=== PATIENT | male | born 1955 | race Caucasian/White ===

== ENCOUNTER 2020-07-12 10:06 | Inpatient (IN) ==
[2020-07-12] MEDS ORDERED: 0.9 % SODIUM CHLORIDE 1,000 ML IV ONE (10:38)
[2020-07-12] MEDS ORDERED: ASPIRIN 81 MG TAB.CHEW CHEWED ONE (10:44)
--- NOTE | 2020-07-12 10:44 | Emergency Department Note ---
SOB HPI General Chief Complaint: Shortness of Breath/Dyspnea Stated Complaint: SOB Time Seen by Provider: 07/12/20 10:44 Source: patient Mode of arrival: ambulatory Limitations: no limitations History of Present Illness HPI Narrative: Narrative: This pleasant 65-year-old gentleman comes the emergency room brought by his son who lives in the same facility/domicile. Apparently his saturations went down to 86% although patient does not specifically know remember this. He has become more short of breath. Here he was found to be 86%. He also has had a fever and a temperature. He initially was interviewed via virtual by his primary care provider, Dr. Shaq Clemente, on the for a dry cough that is started somewhere around the December. He has had decreased sleep some headache, nasal congestion, fatigue, no GI symptoms, no change in taste or smell frequent coughs were noted. He was prescribed promethazine, put in quarantine, recommended to have Covid testing done. This was done on the same day and was actually found to be positive. He was told to come the emergency room should he become more short of breath which has been happening over this past day or 2 I believe. He reports being very dry in his mouth. He is coughing up only a tiny bit of phlegm. He still has some sense of humor. Related Data Home Medications Medication Instructions Recorded Confirmed cholecalciferol (vitamin D3) 50 2,000 unit PO .COMPLEX cap 12/29/16 07/12/20 mcg (2,000 unit) capsule atorvastatin 40 mg tablet 40 mg PO QDAY 01/25/19 07/12/20 aspirin 81 mg tablet,delayed 81 mg PO BID tab 03/28/19 07/12/20 release cetirizine 5 mg-pseudoephedrine ER 1 tab PO ONCE PRN tab 10/12/19 07/12/20 120 mg tablet,extended release,12hr metoprolol succinate 25 mg PO HS 07/12/20 07/12/20 metoprolol succinate 50 mg PO DAILY 07/12/20 07/12/20 Previous Rx's Medication Instructions Recorded nitroglycerin 0.4 mg sublingual 0.4 mg SUBLINGUAL Q5-15M PRN #25 12/14/18 tablet tab famotidine 20 mg tablet 20 mg PO BID #180 tab 11/30/19 tamsulosin 0.4 mg capsule 0.4 mg PO QDAY #90 cap 02/14/20 promethazine 6.25 mg-codeine 10 5 ml PO Q6H PRN #120 ml 07/03/20 mg/5 mL syrup zolpidem 10 mg tablet 10 mg PO HS PRN #30 tab 07/03/20 Allergies Allergy/AdvReac Type Severity Reaction Status Date / Time cat dander Allergy Cough Verified 07/03/20 16:53 Review of Systems ROS ROS Narrative: Narrative: 10 system Review of Systems negative except as mentioned above. [facility] Narrative Patient History Narrative: Narrative: Medical/Surgical/Family History All Active Problems (Updated 07/12/20 @ 15:05 by Donta Pandey DO) Hypoxia (Acute) Pneumonia due to COVID-19 virus (Acute) Tachypnea (Acute) Fever (Acute) DNR (do not resuscitate) (Acute) DNI (do not intubate) (Acute) Acute kidney insufficiency (Acute) Morbid obesity (Acute) BPH (benign prostatic hyperplasia) (Chronic) Hyperglycemia (Chronic) S/P CABG x 3 (Chronic) CAD (coronary artery disease) (Acute) Fatigue (Chronic) Morbid obesity (Chronic) Weight gain (Chronic) Skin lesion of face (Chronic) Chronic kidney disease, stage III (moderate) (Chronic) Right knee pain (Chronic) Heartburn (Chronic) Grief (Chronic) Secondary hyperparathyroidism of renal origin (Chronic) Hypertensive renal disease (Chronic) Stress (Chronic) Sciatica (Chronic) Right ankle pain (Chronic) Reactive airway disease (Chronic) Prostate disorder (Chronic) Peroneal tendonitis (Chronic) Pain in joint involving ankle and foot (Chronic) Osteoarthritis (Chronic) Onychomycosis (Chronic) Low back pain (Chronic) Insomnia (Chronic) Hypocalcemia (Chronic) Hypertension, essential (Chronic) Herpes zoster (Chronic) Hearing loss (Chronic) Gastroesophageal reflux (Chronic) Elevated serum creatinine (Chronic) Diverticulosis of colon (Chronic) Depression (Chronic) Degeneration of lumbar intervertebral disc (Chronic) Back pain (Chronic) Medical History (Updated 07/12/20 @ 15:05 by Donta Pandey DO) Back pain (Chronic) Myofascial back pain Basal cell carcinoma (Resolved) Bronchitis (Resolved) 03/27/2014 Chest discomfort (Inactive) Chronic kidney disease, stage III (moderate) (Chronic) Follows with nephrology. Avoid NSAIDs. Cough (Resolved) Degeneration of lumbar intervertebral disc (Chronic) Depression (Chronic) Diverticulosis of colon (Chronic) Elevated serum creatinine (Chronic) Gastroesophageal reflux (Chronic) Grief (Chronic) Hearing loss (Chronic) Heartburn (Chronic) Occasional. Not controlled. Herpes zoster (Chronic) Hypertension, essential (Chronic) Well-controlled on metoprolol succinate Low-sodium diet recommended Hypertensive renal disease (Chronic) Hypocalcemia (Chronic) Insomnia (Chronic) Stable on zolpidem 10 mg daily. He has been on it for several years without an increased dose. Did not do well when he tried [id number] sleep aid instead. Low back pain (Chronic) Mild at present Medicare annual wellness visit, subsequent (Inactive) Morbid obesity (Chronic) Counseled on diet, exercise, and weight loss. Patient exercising in the pool, during therapy for his knee. No longer seeing the dietitian. Onychomycosis (Chronic) Osteoarthritis (Chronic) Steroid injection to right knee today for symptomatic severe degenerative changes. Pain in joint involving ankle and foot (Chronic) left Peroneal tendonitis (Chronic) left ankle Prostate disorder (Chronic) enlarged prostate Reactive airway disease (Chronic) Right ankle pain (Chronic) Sciatica (Chronic) Secondary hyperparathyroidism of renal origin (Chronic) Skin lesion of face (Chronic) Tiny roughened area right eyebrow Stress (Chronic) Enormous family stressors Trochanteric bursitis (Resolved) Surgical History (Updated 07/12/20 @ 10:46 by Donta Pandey DO) Hx of adenoidectomy (Resolved) Hx of CABG (Acute ~01/2019) 01/16/2019 Three vessel bypass grafting Hx of cataract surgery (Resolved) bilateral Hx of colonoscopy (Resolved) 01/02/14 Diverticulosis. 5 year follow up. Hx of foot surgery (Resolved) 06/28 capsule and tendon repair left ankle Hx of tonsillectomy (Resolved) Social History Smoking Status: Never smoker Alcohol Intake Frequency: a few times a month Exam Narrative Narrative: Narrative: General Limitations: no limitations General appearance: Present alert, in no apparent distress, nontoxic and other (Is demonstrating shortness of breath with 3-7 word dyspnea but variable. Is a bit tachypneic but does not look toxic. Normal color.) Head Head: Present atraumatic and normocephalic Eye Eye: Present normal appearance, PERRL and EOMI ENT ENT: Present mucous membranes dry (Very dry) Neck Neck: Present trachea midline; Absent lymphadenopathy and thyromegaly Chest Chest: Present symmetric chest wall rise Respiratory Respiratory: Present decreased breath sounds and other (tachypnea of 30-36 breaths per minute, sometimes 4-7 word dyspnea.); Absent respiratory distress, rales/crackles, wheezes, stridor, accessory muscle use and prolonged expiratory phase Cardiovascular Cardiovascular: Present regular rate and tachycardia; Absent systolic murmur and diastolic murmur Adbominal Abdominal: Present soft and other (very large); Absent distention, tenderness, guarding, rebound, rigidity, organomegaly and mass Extremities Extremities: Present normal capillary refill; Absent pedal edema, pretibial edema, calf tenderness and cyanosis Back Back: Neurological Neurological: Present alert and oriented X3 Psychiatric Psychiatric: Present normal affect, polite, pleasant and other (occasional 1/2 smile and joke.); Absent depressed, agitated, anxious and poor eye contact Skin Skin: Present warm (WNL) and dry; Absent cyanosis and pallor Course Vital Signs Vital signs: Vital Signs Temperature 102.1 F H 07/12/20 10:07 Pulse Rate 107 H 07/12/20 10:07 Respiratory Rate 22 07/12/20 10:07 Blood Pressure 125/87 07/12/20 10:07 Pulse Oximetry (%) 86 L 07/12/20 10:07 Temperature 102.1 F H 07/12/20 10:07 Pulse Rate 99 H 07/12/20 14:17 Respiratory Rate 38 H 07/12/20 14:17 Blood Pressure 111/71 07/12/20 14:17 Pulse Oximetry (%) 91 07/12/20 14:17 [facility] Narrative Medical decision making narrative: Narrative: 10:35 AM - interviewed and examined. Worsening shortness of breath and Covid positive patient with now fever and tachycardia and tachypnea. Will do full work-up metabolically, with his history of coronary artery disease will also be doing a troponin, BNP, EKG; will get blood cultures; etc. NOTE: I spoke with patient regarding likelihood of or possibility of needing to be transferred for specialty care. He under no circumstances wants to be transferred even if it were at risk for cost of life. He does not want full CPR but asked to do what ever I would do would be a time-limited consideration. He does not want to be intubated though even if it were for Covid pathology. With patient's creatinine 2.0, his D-dimer was not able to be investigated further the angiogram. I discussed with the hospitalist, Dr. Jimenez, who is willing to accept this patient for admission/inpatient treatment. Several labs are still pending due to a necessary redraw due to sample having clotted. Dr. Jimenez and I discussed remdesivir, 200 mg ordered. Also dexamethasone, 6 mg ordered. Lab Data Result diagrams: 07/12/20 11:00 07/12/20 12:41 Labs: Lab Results 07/12/20 07/12/20 07/12/20 Range/Units 11:00 11:00 11:20 WBC 7.2 (4.5-11.0) K/mcL RBC 4.76 (4.50-5.90) M/mcL Hgb 14.1 (13.5-16.5) g/dL Hct 41.0 (41.0-55.0) % MCV 86.1 (80.0-100.0) fL MCH 29.6 (26.0-34.0) pg MCHC 34.4 (31.0-36.0) g/dL RDW 12.1 (11.5-14.5) % Plt Count 191 (140-440) K/mcL MPV 11.4 H (7.4-10.4) fL Neut % (Auto) 78.0 (38.0-78.0) % Lymph % (Auto) 11.3 L (15.0-49.0) % [place] % (Auto) 10.6 (1.0-12.0) % Eos % (Auto) 0 (0.0-7.0) % Baso % (Auto) 0.1 (0.0-2.0) % Lymph # (Auto) 0.81 L (1.50-4.80) K/mcL [place] # (Auto) 0.76 (0.10-0.90) K/mcL Eos # (Auto) 0 (0.00-0.70) K/mcL Baso # (Auto) 0.01 (0.00-0.20) K/mcL Absolute Neutrophils 5.60 (1.80-8.00) K/mcL D-Dimer 1.76 H (0.27-0.50) ug/mL VBG Lactic Acid Cancelled Sodium (133-145) mmol/L Potassium (3.3-5.1) mmol/L Chloride (96-108) mmol/L Carbon Dioxide (22-30) mmol/L Anion Gap (8.0-16.0) BUN (8-23) mg/dL Creatinine (0.7-1.2) mg/dL POC Creatinine (0.6-1.2) mg/dL GFR Calculation Glucose (70-105) mg/dL Calcium (8.6-10.4) mg/dL Total Bilirubin (0.1-1.0) mg/dL AST (<40) U/L ALT (<40) U/L Alkaline Phosphatase (39-117) U/L Troponin T (<0.03) ng/mL NT-Pro-B Natriuret Pep (<125.0) pg/mL Total Protein (5.9-8.4) gm/dL Albumin (3.2-5.2) gm/dL Globulin (2.2-3.7) gm/dL Albumin/Globulin Ratio (1.0-2.3) Procalcitonin (<0.10) ng/mL 07/12/20 07/12/20 07/12/20 Range/Units 12:41 12:41 12:41 WBC (4.5-11.0) K/mcL RBC (4.50-5.90) M/mcL Hgb (13.5-16.5) g/dL Hct (41.0-55.0) % MCV (80.0-100.0) fL MCH (26.0-34.0) pg MCHC (31.0-36.0) g/dL RDW (11.5-14.5) % Plt Count (140-440) K/mcL MPV (7.4-10.4) fL Neut % (Auto) (38.0-78.0) % Lymph % (Auto) (15.0-49.0) % [place] % (Auto) (1.0-12.0) % Eos % (Auto) (0.0-7.0) % Baso % (Auto) (0.0-2.0) % Lymph # (Auto) (1.50-4.80) K/mcL [place] # (Auto) (0.10-0.90) K/mcL Eos # (Auto) (0.00-0.70) K/mcL Baso # (Auto) (0.00-0.20) K/mcL Absolute Neutrophils (1.80-8.00) K/mcL D-Dimer (0.27-0.50) ug/mL VBG Lactic Acid Sodium 133 (133-145) mmol/L Potassium 3.7 (3.3-5.1) mmol/L Chloride 101 (96-108) mmol/L Carbon Dioxide 17 L (22-30) mmol/L Anion Gap 15.0 (8.0-16.0) BUN 32 H (8-23) mg/dL Creatinine 2.0 H (0.7-1.2) mg/dL POC Creatinine (0.6-1.2) mg/dL GFR Calculation 34 Glucose 122 H (70-105) mg/dL Calcium 7.8 L (8.6-10.4) mg/dL Total Bilirubin 0.6 (0.1-1.0) mg/dL AST 93 H (<40) U/L ALT 55 H (<40) U/L Alkaline Phosphatase 44 (39-117) U/L Troponin T < 0.01 (<0.03) ng/mL NT-Pro-B Natriuret Pep 97.1 (<125.0) pg/mL Total Protein 6.0 (5.9-8.4) gm/dL Albumin 3.0 L (3.2-5.2) gm/dL Globulin 3.0 (2.2-3.7) gm/dL Albumin/Globulin Ratio 1.0 (1.0-2.3) Procalcitonin 0.17 H (<0.10) ng/mL 07/12/20 Range/Units 12:56 WBC (4.5-11.0) K/mcL RBC (4.50-5.90) M/mcL Hgb (13.5-16.5) g/dL Hct (41.0-55.0) % MCV (80.0-100.0) fL MCH (26.0-34.0) pg MCHC (31.0-36.0) g/dL RDW (11.5-14.5) % Plt Count (140-440) K/mcL MPV (7.4-10.4) fL Neut % (Auto) (38.0-78.0) % Lymph % (Auto) (15.0-49.0) % [place] % (Auto) (1.0-12.0) % Eos % (Auto) (0.0-7.0) % Baso % (Auto) (0.0-2.0) % Lymph # (Auto) (1.50-4.80) K/mcL [place] # (Auto) (0.10-0.90) K/mcL Eos # (Auto) (0.00-0.70) K/mcL Baso # (Auto) (0.00-0.20) K/mcL Absolute Neutrophils (1.80-8.00) K/mcL D-Dimer (0.27-0.50) ug/mL VBG Lactic Acid Sodium (133-145) mmol/L Potassium (3.3-5.1) mmol/L Chloride (96-108) mmol/L Carbon Dioxide (22-30) mmol/L Anion Gap (8.0-16.0) BUN (8-23) mg/dL Creatinine (0.7-1.2) mg/dL POC Creatinine 2.0 H (0.6-1.2) mg/dL GFR Calculation Glucose (70-105) mg/dL Calcium (8.6-10.4) mg/dL Total Bilirubin (0.1-1.0) mg/dL AST (<40) U/L ALT (<40) U/L Alkaline Phosphatase (39-117) U/L Troponin T (<0.03) ng/mL NT-Pro-B Natriuret Pep (<125.0) pg/mL Total Protein (5.9-8.4) gm/dL Albumin (3.2-5.2) gm/dL Globulin (2.2-3.7) gm/dL Albumin/Globulin Ratio (1.0-2.3) Procalcitonin (<0.10) ng/mL Discharge Plan Patient/Caregiver Discharge Instructions Pt seen by PRIMARY HEALTH CARE NURSE/PA only: No Clinical Impression: Hypoxia, Pneumonia due to COVID-19 virus, Tachypnea, Fever, DNR (do not resuscitate), DNI (do not intubate), Acute kidney insufficiency, Morbid obesity Patient Disposition: Xfer As Inpt ([facility]) Follow up with: Shaq Clemente DO [Primary Care Provider] - Prescriptions: No Action famotidine [Acid Spa Coordinator (famotidine)] 20 mg tablet 20 mg PO BID Qty: 180 RF: 3 zolpidem 10 mg tablet 10 mg PO HS PRN (Reason: insomnia) Qty: 30 RF: 2 cholecalciferol (vitamin D3) 2,000 unit capsule 2,000 unit PO .COMPLEX RF: 0 nitroglycerin 0.4 mg tablet, sublingual 0.4 mg SUBLINGUAL Q5-15M PRN (Reason: chest pain) Qty: 25 RF: 2 atorvastatin 40 mg tablet 40 mg PO QDAY RF: 0 aspirin 81 mg tablet,delayed release (DR/EC) 81 mg PO BID RF: 0 tamsulosin [Flomax] 0.4 mg capsule 0.4 mg PO QDAY Qty: 90 RF: 3 promethazine-codeine 6.25-10 mg/5 mL syrup 5 ml PO Q6H PRN (Reason: cough) Qty: 120 RF: 0 cetirizine-pseudoephedrine [Aller-Sridhar D] 5-120 mg tablet extended release 12 hr 1 tab PO ONCE PRN (Reason: Allergy Symptoms) RF: 0 metoprolol succinate 50 mg Tablet Extended Release 24 Hr 50 mg PO DAILY RF: 0 metoprolol succinate 25 mg Tablet Extended Release 24 Hr 25 mg PO HS RF: 0
[2020-07-12 12:45] LABS: Basophils # (Auto) 0.01 K/mcL (0.00-0.20); Basophils % (Auto) 0.1 % (0.0-2.0); Eosinophils # (Auto) 0 K/mcL (0.00-0.70); Eosinophils % (Auto) 0 % (0.0-7.0); Hemoglobin 14.1 g/dL (13.5-16.5); Lymphocytes # (Auto) 0.81 K/mcL (1.50-4.80); Lymphocytes % (Auto) 11.3 % (15.0-49.0); Mean Cell Volume 86.1 fL (80.0-100.0); Mean Corpuscular HGB Conc 34.4 g/dL (31.0-36.0); Mean Platelet Volume 11.4 fL (7.4-10.4); Monocytes # (Auto) 0.76 K/mcL (0.10-0.90); Monocytes % (Auto) 10.6 % (1.0-12.0); Platelet Count 191 K/mcL (140-440); RBC 4.76 M/mcL (4.50-5.90); Red Cell Distribution Width 12.1 % (11.5-14.5); WBC 7.2 K/mcL (4.5-11.0)
[2020-07-12] MEDS ORDERED: DEXAMETHASONE 10 MG/ML VIAL IV ONE (14:02)
[2020-07-12] MEDS ORDERED: REMDESIVIR 200 MG in 0.9 % SODIUM CHLORIDE 250 ML IV ONE ×2 (14:02→15:00)
--- NOTE | 2020-07-12 14:05 | Internal Med History&Physical ---
HPI History of Present Illness Patient information: Note initiated : 07/12/20 at 2:02 pm Service Date, if different from initiated Date: [] Patient: Guillermo Burnette a 65 y/o M admitted on for Shortness of breath. Chief Complaint: [] History of present illness: Mr. Burnette is a 65 year old M who lives with his son and grandson presents to the ER following 2 weeks onset of increasing malaise weakness URI symptoms. He was diagnosed with Covid 2 weeks ago however over the last 4 days has gotten increasingly short of breath with exertion. Patient has not been able to perform his ADLs. In the last 24 hours he has become increasingly somnolent and lethargic unable to get out of bed. He endorses loss of appetite. Patient saturation went down to low 80s along with a fever. Subsequently was brought into the ER for evaluation. Initial work-up was consistent with Covid pneumonia on chest imaging. Patient was found in significant distress with tachycardia over 100 and tachypneic at 46. He was started on supplemental oxygen and barely saturating 90% on 4 L. Blood gas 7.3 on 3 L oxygen. White count 7.2, D-dimer 1.76, creatinine 2. Covid positive. Subsequently hospitalist service was consulted in light of Covid pneumonia. Patient does not want to be transferred in the event he deteriorates and not as he wants intubation. He is agreeable noninvasive mechanical ventilation At the time of my evaluation patient is lethargic and distressed breathing rapidly. He was able to answer most of the questions and endorsed to history as above. He denied associated headache, photophobia but endorses to generalized body ache, weakness, lethargy. He denies diarrhea, dysuria. Denies productive sputum but endorses dry cough. He denies rash or joint swelling or pain Review of systems 10 point review system was performed and is negative except for ones discussed above PFSH PFSH All Active Problems (Updated 07/12/20 @ 10:50 by Donta Pandey DO) BPH (benign prostatic hyperplasia) (Chronic) Hyperglycemia (Chronic) S/P CABG x 3 (Chronic) CAD (coronary artery disease) (Acute) Fatigue (Chronic) Morbid obesity (Chronic) Weight gain (Chronic) Skin lesion of face (Chronic) Chronic kidney disease, stage III (moderate) (Chronic) Right knee pain (Chronic) Heartburn (Chronic) Grief (Chronic) Secondary hyperparathyroidism of renal origin (Chronic) Hypertensive renal disease (Chronic) Stress (Chronic) Sciatica (Chronic) Right ankle pain (Chronic) Reactive airway disease (Chronic) Prostate disorder (Chronic) Peroneal tendonitis (Chronic) Pain in joint involving ankle and foot (Chronic) Osteoarthritis (Chronic) Onychomycosis (Chronic) Low back pain (Chronic) Insomnia (Chronic) Hypocalcemia (Chronic) Hypertension, essential (Chronic) Herpes zoster (Chronic) Hearing loss (Chronic) Gastroesophageal reflux (Chronic) Elevated serum creatinine (Chronic) Diverticulosis of colon (Chronic) Depression (Chronic) Degeneration of lumbar intervertebral disc (Chronic) Back pain (Chronic) Medical History (Updated 07/12/20 @ 10:50 by Donta Pandey DO) Back pain (Chronic) Myofascial back pain Basal cell carcinoma (Resolved) Bronchitis (Resolved) 03/27/2014 Chest discomfort (Inactive) Chronic kidney disease, stage III (moderate) (Chronic) Follows with nephrology. Avoid NSAIDs. Cough (Resolved) Degeneration of lumbar intervertebral disc (Chronic) Depression (Chronic) Diverticulosis of colon (Chronic) Elevated serum creatinine (Chronic) Gastroesophageal reflux (Chronic) Grief (Chronic) Hearing loss (Chronic) Heartburn (Chronic) Occasional. Not controlled. Herpes zoster (Chronic) Hypertension, essential (Chronic) Well-controlled on metoprolol succinate Low-sodium diet recommended Hypertensive renal disease (Chronic) Hypocalcemia (Chronic) Insomnia (Chronic) Stable on zolpidem 10 mg daily. He has been on it for several years without an increased dose. Did not do well when he tried [id number] sleep aid instead. Low back pain (Chronic) Mild at present Medicare annual wellness visit, subsequent (Inactive) Morbid obesity (Chronic) Counseled on diet, exercise, and weight loss. Patient exercising in the pool, during therapy for his knee. No longer seeing the dietitian. Onychomycosis (Chronic) Osteoarthritis (Chronic) Steroid injection to right knee today for symptomatic severe degenerative changes. Pain in joint involving ankle and foot (Chronic) left Peroneal tendonitis (Chronic) left ankle Prostate disorder (Chronic) enlarged prostate Reactive airway disease (Chronic) Right ankle pain (Chronic) Sciatica (Chronic) Secondary hyperparathyroidism of renal origin (Chronic) Skin lesion of face (Chronic) Tiny roughened area right eyebrow Stress (Chronic) Enormous family stressors Trochanteric bursitis (Resolved) Surgical History (Updated 07/12/20 @ 10:46 by Donta Pandey DO) Hx of adenoidectomy (Resolved) Hx of CABG (Acute ~01/2019) 01/16/2019 Three vessel bypass grafting Hx of cataract surgery (Resolved) bilateral Hx of colonoscopy (Resolved) 01/02/14 Diverticulosis. 5 year follow up. Hx of foot surgery (Resolved) 06/28 capsule and tendon repair left ankle Hx of tonsillectomy (Resolved) Family History brother Alcohol abuse Diabetes mellitus Obesity Social History household members: family housing: house lives independently: Yes marital status: occupational status: disabled occupation: [employer] other: 4 children smoking status: Never smoker alcohol intake frequency: a few times a month MEDS/ALLERGIES Home Medications and Allergies Home Medications Medication Instructions Recorded Confirmed Type cholecalciferol (vitamin D3) 50 2,000 unit PO .COMPLEX cap 12/29/16 07/03/20 History mcg (2,000 unit) capsule nitroglycerin 0.4 mg sublingual 0.4 mg SUBLINGUAL Q5-15M PRN #25 12/14/18 07/03/20 Rx tablet tab atorvastatin 40 mg tablet 40 mg PO QDAY 01/25/19 07/03/20 History aspirin 81 mg tablet,delayed 81 mg PO BID tab 03/28/19 07/03/20 History release metoprolol succinate 50 mg 50 mg PO .COMPLEX 03/28/19 07/03/20 History tablet,extended release 24 hr cetirizine 5 mg-pseudoephedrine ER 1 tab PO ONCE PRN tab 10/12/19 07/03/20 History 120 mg tablet,extended release,12hr famotidine 20 mg tablet 20 mg PO BID #180 tab 11/30/19 07/03/20 Rx tamsulosin 0.4 mg capsule 0.4 mg PO QDAY #90 cap 02/14/20 07/03/20 Rx promethazine 6.25 mg-codeine 10 5 ml PO Q6H PRN #120 ml 07/03/20 07/03/20 Rx mg/5 mL syrup zolpidem 10 mg tablet 10 mg PO HS PRN #30 tab 07/03/20 Rx Allergies Allergy/AdvReac Type Severity Reaction Status Date / Time cat dander Allergy Cough Verified 07/03/20 16:53 EXAM Constitutional Vitals: Temp Pulse Resp BP Pulse Ox 102.1 F H 102 H 38 H 117/70 92 07/12/20 10:07 07/12/20 13:40 07/12/20 13:40 07/12/20 13:40 07/12/20 13:40 Morbid obese/confused and lethargic Head normocephalic Oral cavity dry No ear nose discharge Eye movement symmetrical Neck supple no lymphadenopathy S1-S2 tachycardia Labored breathing, tachypneic at 45 Nondistended nontender abdomen Lower extremity no cyanosis clubbing or joint swelling Skin no suspicious lesion Psych very anxious and restless however lethargic and frequently dozes off Neuro moving all 4 extremities. DATA Data Completed and Pending Labs: Labs from last 24 hours 07/12/20 07/12/20 07/12/20 12:56 12:41 12:41 WBC RBC Hgb Hct MCV MCH MCHC RDW Plt Count MPV Neut % (Auto) Lymph % (Auto) [place] % (Auto) Eos % (Auto) Baso % (Auto) Lymph # (Auto) [place] # (Auto) Eos # (Auto) Baso # (Auto) Absolute Neutrophils D-Dimer VBG Lactic Acid Sodium Potassium Chloride Carbon Dioxide Anion Gap BUN Creatinine POC Creatinine 2.0 H GFR Calculation Glucose Calcium Total Bilirubin AST ALT Alkaline Phosphatase Troponin T Pending NT-Pro-B Natriuret Pep Total Protein Albumin Globulin Albumin/Globulin Ratio Procalcitonin Pending 07/12/20 07/12/20 07/12/20 12:41 11:20 11:20 WBC RBC Hgb Hct MCV MCH MCHC RDW Plt Count MPV Neut % (Auto) Lymph % (Auto) [place] % (Auto) Eos % (Auto) Baso % (Auto) Lymph # (Auto) [place] # (Auto) Eos # (Auto) Baso # (Auto) Absolute Neutrophils D-Dimer VBG Lactic Acid Cancelled Sodium Pending Potassium Pending Chloride Pending Carbon Dioxide Pending Anion Gap Pending BUN Pending Creatinine Pending POC Creatinine GFR Calculation Pending Glucose Pending Calcium Pending Total Bilirubin Pending AST Pending ALT Pending Alkaline Phosphatase Pending Troponin T NT-Pro-B Natriuret Pep Pending Total Protein Pending Albumin Pending Globulin Pending Albumin/Globulin Ratio Pending Procalcitonin Pending 07/12/20 07/12/20 07/12/20 11:00 11:00 11:00 WBC RBC Hgb Hct MCV MCH MCHC RDW Plt Count MPV Neut % (Auto) Lymph % (Auto) [place] % (Auto) Eos % (Auto) Baso % (Auto) Lymph # (Auto) [place] # (Auto) Eos # (Auto) Baso # (Auto) Absolute Neutrophils D-Dimer 1.76 H VBG Lactic Acid Sodium Pending Potassium Pending Chloride Pending Carbon Dioxide Pending Anion Gap Pending BUN Pending Creatinine Pending POC Creatinine GFR Calculation Pending Glucose Pending Calcium Pending Total Bilirubin Pending AST Pending ALT Pending Alkaline Phosphatase Pending Troponin T Pending NT-Pro-B Natriuret Pep Pending Total Protein Pending Albumin Pending Globulin Pending Albumin/Globulin Ratio Pending Procalcitonin 07/12/20 11:00 WBC 7.2 RBC 4.76 Hgb 14.1 Hct 41.0 MCV 86.1 MCH 29.6 MCHC 34.4 RDW 12.1 Plt Count 191 MPV 11.4 H Neut % (Auto) 78.0 Lymph % (Auto) 11.[address] [place] % (Auto) 10.6 Eos % (Auto) 0 Baso % (Auto) 0.1 Lymph # (Auto) 0.[address] [place] # (Auto) 0.76 Eos # (Auto) 0 Baso # (Auto) 0.01 Absolute Neutrophils 5.60 D-Dimer VBG Lactic Acid Sodium Potassium Chloride Carbon Dioxide Anion Gap BUN Creatinine POC Creatinine GFR Calculation Glucose Calcium Total Bilirubin AST ALT Alkaline Phosphatase Troponin T NT-Pro-B Natriuret Pep Total Protein Albumin Globulin Albumin/Globulin Ratio Procalcitonin A/P Narrative A/P Narrative: * COVID-19 pneumonia-PCU admission/initiate remdesivir/dexamethasone, thrombosis prophylaxis/coag and inflammatory markers, maintain COVID-19 precautions * Acute hypoxic respiratory failure secondary to Covid pneumonia. Large AA gradient on ABG. Initiate NIV for increased work of breathing. Serial ABG/interval chest imaging * Systemic inflammatory response syndrome with tachycardia 100 and tachypnea over 42nd to acute viral syndrome * Acute encephalopathy secondary to acute viral syndrome * Severe weakness secondary to acute viral syndrome. * Morbid obesity directed therapy/dietary consult * History of CKD stage III creatinine 2. * BPH continue tamsulosin * History of CAD continue aspirin/statin/beta-moni/sublingual nitrate * Hypertension metoprolol * Prophylaxis heparin Plan * Inpatient PCU admission in light of [place] 2 score 16 indicating high risk mortality. * Noninvasive mechanical ventilation/oxygen support/serial ABGs and imaging * Coag/inflammatory markers * Remdesivir/dexamethasone/empiric antibiotics/thrombosis prophylaxis on heparin * Pre-existing medical condition management home meds * Directed therapies/nutrition support/early mobilization * Patient DNR and would does not want intubation Time Spent With Patient Time: Total time spent is greater than 50% in coordination of care (as documented) at patient's floor/unit and/or counseling patient:
--- NOTE | 2020-07-12 14:09 | XRay Report ---
HISTORY: Dyspnea FINDINGS: There are moderate alveolar infiltrates in both lungs. The greatest consolidation is located in the right lower lobe there is also moderate involvement around the left hilum. Milder involvement is seen in the upper lobes. Right diaphragm is mildly elevated. No pleural effusion is present. The heart is moderately enlarged. There is no congestive heart failure. There has been prior coronary bypass surgery. Comparison with the prior exam from 02/22/19 shows the heart has enlarged and the infiltrates are new. IMPRESSION: Moderate bilateral pneumonia Worsening cardiomegaly Dr. Pandey was called with the results Interpreted and Authenticated by: Ghulam Quarles 07/12/20
[2020-07-12 14:10] LABS: proBNP 97.1 pg/mL (<125.0)
[2020-07-12 14:13] LABS: ALT/SGPT 55 U/L (<40); AST/SGOT 93 U/L (<40); Alkaline Phosphatase 44 U/L (39-117); Bilirubin,Total 0.6 mg/dL (0.1-1.0); Blood Urea Nitrogen 32 mg/dL (8-23); Calcium 7.8 mg/dL (8.6-10.4); Carbon Dioxide 17 mmol/L (22-30); Chloride 101 mmol/L (96-108); Glomerular Filtration Rate 34; Glucose 122 mg/dL (70-105)
[2020-07-12] MEDS ORDERED: CALCIUM CHLORIDE 1,000 MG/10 ML SYRINGE IV PRN (16:45)
[2020-07-12] MEDS ORDERED: MAGNESIUM SULFATE 2 GM/50 ML BAG IV PRN (16:45)
[2020-07-12] MEDS ORDERED: POTASSIUM CHLORIDE 40 MEQ in DEXTROSE 5% IN WATER 500 ML IV PRN (16:45)
[2020-07-12] MEDS ORDERED: BISACODYL 10 MG SUPP.RECT PR PRN (16:45)
[2020-07-12] MEDS ORDERED: ONDANSETRON 4 MG/2 ML VIAL IV PRN (16:45)
[2020-07-12] MEDS ORDERED: ONDANSETRON 4 MG ODT TABLET SL PRN (16:45)
[2020-07-12] MEDS ORDERED: hydrALAZINE 20 MG/ML VIAL IV PRN (16:45)
[2020-07-12] MEDS ORDERED: METOPROLOL TARTRATE 5 MG/5 ML VIAL IV PRN (16:45)
[2020-07-12] MEDS ORDERED: NEUTRA PHOS 1 PACKET PO PRN (16:45)
[2020-07-12] MEDS ORDERED: POLYETHYLENE GLYCOL 3350 17 GM PACKET PO PRN (16:45)
[2020-07-12] MEDS ORDERED: POTASSIUM CHLORIDE 20 MEQ PACKET PO PRN (16:45)
[2020-07-12] MEDS ORDERED: cefTRIAXone 2 GM VIAL ONE (18:04)
[2020-07-12] MEDS: 0.9 % SODIUM CHLORIDE 10 ML SYRINGE IV SCH ×2 (18:10→21:27)
[2020-07-12] MEDS: HEPARIN 5,000 UNIT/ML VIAL SQ SCH (18:10)
[2020-07-12] MEDS: cefTRIAXone 2 GM in DEXTROSE 5% IN WATER 50 ML IV SCH (18:10)
[2020-07-12] MEDS ORDERED: NITROGLYCERIN 0.4 MG TAB.SUBL SL PRN (19:35)
[2020-07-12] MEDS ORDERED: CETIRIZINE 10 MG TABLET PO PRN (19:41)
[2020-07-12] MEDS ORDERED: PSEUDOEPHEDRINE 30 MG TABLET PO PRN (19:42)
[2020-07-12] MEDS ORDERED: MELATONIN 3 MG TABLET PO PRN (21:00)
[2020-07-12] MEDS: SENNOSIDES/DOCUSATE SODIUM 1 TAB TABLET PO SCH (21:25)
[2020-07-12] MEDS: ASPIRIN 81 MG TAB.CHEW PO SCH (21:25)
[2020-07-12] MEDS: DOCUSATE SODIUM 100 MG CAPSULE PO SCH (21:26)
[2020-07-12] MEDS: METOPROLOL SUCCINATE 25 MG TAB.XL.24H PO SCH (21:26)
[2020-07-12] MEDS: FAMOTIDINE 20 MG TABLET PO SCH (21:32)
[2020-07-13] MEDS: HEPARIN 5,000 UNIT/ML VIAL SQ SCH ×4 (03:22→21:17)
[2020-07-13] MEDS: 0.9 % SODIUM CHLORIDE 10 ML SYRINGE IV SCH ×3 (05:46→21:18)
[2020-07-13 07:24] LABS: Basophils # (Auto) 0.01 K/mcL (0.00-0.20); Basophils % (Auto) 0.1 % (0.0-2.0); Eosinophils # (Auto) 0 K/mcL (0.00-0.70); Eosinophils % (Auto) 0 % (0.0-7.0); Hematocrit 44.2 % (41.0-55.0); Hemoglobin 14.7 g/dL (13.5-16.5); Lymphocytes # (Auto) 0.72 K/mcL (1.50-4.80); Lymphocytes % (Auto) 9.1 % (15.0-49.0); Mean Cell Volume 88.2 fL (80.0-100.0); Mean Corpuscular HGB Conc 33.3 g/dL (31.0-36.0); Mean Platelet Volume 10.4 fL (7.4-10.4); Monocytes # (Auto) 0.63 K/mcL (0.10-0.90); Monocytes % (Auto) 7.9 % (1.0-12.0); Neutrophils % (Auto) 82.9 % (38.0-78.0); Platelet Count 222 K/mcL (140-440); RBC 5.01 M/mcL (4.50-5.90); Red Cell Distribution Width 12.3 % (11.5-14.5); WBC 7.9 K/mcL (4.5-11.0)
[2020-07-13 08:28] LABS: ALT/SGPT 61 U/L (<40); AST/SGOT 82 U/L (<40); Albumin 3.4 gm/dL (3.2-5.2); Albumin/Globulin Ratio 1.1 (1.0-2.3); Alkaline Phosphatase 50 U/L (39-117); Bilirubin,Direct 0.2 mg/dL (<0.3); Bilirubin,Total 0.5 mg/dL (0.1-1.0); Blood Urea Nitrogen 39 mg/dL (8-23); Calcium 9.3 mg/dL (8.6-10.4); Carbon Dioxide 20 mmol/L (22-30); Chloride 103 mmol/L (96-108); Globulin 3.2 gm/dL (2.2-3.7); Glomerular Filtration Rate 38; Glucose 137 mg/dL (70-105); Lactate Dehydrogenase 499 U/L (135-225); Phosphorous 4.6 mg/dL (2.5-4.5); Triglycerides 73 mg/dL (<150); Uric Acid 7.4 mg/dL (2.5-8.0)
[2020-07-13 08:29] LABS: Ferritin 743.4 ng/mL (30.0-400.0)
[2020-07-13] MEDS: METOPROLOL SUCCINATE 50 MG TAB.XL.24H PO SCH (08:43)
[2020-07-13] MEDS: DOCUSATE SODIUM 100 MG CAPSULE PO SCH ×2 (08:43→21:17)
[2020-07-13] MEDS: ZINC SULFATE 50 MG CAPSULE PO SCH (08:43)
[2020-07-13] MEDS: TIOTROPIUM BROMIDE 18 MCG INHALANT INH SCH (08:43)
[2020-07-13] MEDS: ASPIRIN 81 MG TAB.CHEW PO SCH ×2 (08:43→21:17)
[2020-07-13] MEDS: MULTIVIT,THER IRON,CA,FA & MIN 1 TABLET PO SCH (08:44)
[2020-07-13] MEDS: TAMSULOSIN 0.4 MG CAPSULE PO SCH (08:44)
[2020-07-13] MEDS: ATORVASTATIN 40 MG TABLET PO SCH (08:44)
[2020-07-13] MEDS: FAMOTIDINE 20 MG TABLET PO SCH ×2 (08:44→21:18)
[2020-07-13] MEDS: DEXAMETHASONE 4 MG TABLET PO SCH (08:44)
[2020-07-13] MEDS ORDERED: ASPIRIN 81 MG TAB.CHEW CHEWED SCH (09:00)
--- NOTE | 2020-07-13 09:24 | Internal Med Progress Note ---
SUBJECTIVE Subjective Patient information: Note initiated : 07/13/20 at 9:18 am Service Date, if different from initiated Date: [] Patient: Guillermo Burnette 65 y/o M admitted on 07/12/20 for Shortness of breath. Chief Complaint: Interval history: History of present illness: Mr. Burnette is a 65 year old M who lives with his son and grandson presents to the ER following 2 weeks onset of increasing malaise weakness URI symptoms. He was diagnosed with Covid 2 weeks ago however over the last 4 days has gotten increasingly short of breath with exertion. Patient has not been able to perform his ADLs. In the last 24 hours he has become increasingly somnolent and lethargic unable to get out of bed. He endorses loss of appetite. Patient saturation went down to low 80s along with a fever. Subsequently was brought into the ER for evaluation. Initial work-up was consistent with Covid pneumonia on chest imaging. Patient was found in significant distress with tachycardia over 100 and tachypneic at 46. He was started on supplemental oxygen and barely saturating 90% on 4 L. Blood gas 7.3 on 3 L oxygen. White count 7.2, D-dimer 1.76, creatinine 2. Covid positive. Subsequently hospitalist service was consulted in light of Covid pneumonia. Patient does not want to be transferred in the event he deteriorates and not as he wants intubation. He is agreeable noninvasive mechanical ventilation At the time of my evaluation patient is lethargic and distressed breathing rapidly. He was able to answer most of the questions and endorsed to history as above. He denied associated headache, photophobia but endorses to generalized body ache, weakness, lethargy. He denies diarrhea, dysuria. Denies productive sputum but endorses dry cough. He denies rash or joint swelling or pain 07/13-overnight on 55% FiO2. ABG 7.37/33/70 on noninvasive mechanical ventilation. Bilateral infiltrates on chest imaging. On remdesivir/ dexamethasone. Continue thrombosis prophylaxis. GFR 38 LFTs stable. Procalcitonin 0.15. Empiric antibiotics can be discontinued in 24 hours. Constitutional Vitals: Vital Signs Temp Pulse Resp BP Pulse Ox 98.0 F 82 21 112/70 97 07/13/20 04:00 07/13/20 06:00 07/13/20 06:00 07/13/20 06:00 07/13/20 06:00 Period Temp Pulse Resp BP Sys/Caro Pulse Ox Last 24 Hr 97.7 F-102.1 F 78-110 21-56 89-130/57-90 85-98 Intake and Output 07/12/20 07/13/20 07/13/20 21:59 05:59 13:59 Intake Total 300 50 Output Total 100 Balance 300 -50 Weight 131.995 kg alert and oriented Much improved mental status than previous day Labored breathing but improved and able to talk in full sentences, on 10 L oxygen while off NIV Obese Minimal anxiety Intake & Output: Intake & Output 07/12/20 07/13/20 07/13/20 21:59 05:59 13:59 Intake Total 300 50 Output Total 100 Balance 300 -50 Weight 131.995 kg Intake: IV 300 Veklury 200 mg In Sodium 250 Chloride 0.9% 250 ml @ 500 mls/ hr IV ONCE ONE Rx#:[id number] Rocephin 2 gm In Dextrose 5% in 50 Water 50 ml @ 100 mls/hr IV DAILY [facility] Rx#:[id number] Oral 50 Output: Void Amount 100 OBJ DATA Labs CBC & Chem 7: 07/13/20 05:27 07/13/20 05:27 Labs: Abnormal Lab Results 07/13/20 07/13/20 07/13/20 05:27 05:27 05:27 MPV Neut % (Auto) 82.9 H Lymph % (Auto) 9.1 L Lymph # (Auto) 0.72 L D-Dimer 1.31 H Carbon Dioxide 20 L BUN 39 H Creatinine 1.8 H POC Creatinine Glucose 137 H Calcium Phosphorus 4.6 H Ferritin 743.4 H AST 82 H ALT 61 H Lactate Dehydrogenase 499 H Albumin Procalcitonin 07/13/20 07/12/20 07/12/20 05:27 12:56 12:41 MPV Neut % (Auto) Lymph % (Auto) Lymph # (Auto) D-Dimer Carbon Dioxide BUN Creatinine POC Creatinine 2.0 H Glucose Calcium Phosphorus Ferritin AST ALT Lactate Dehydrogenase Albumin Procalcitonin 0.15 H 0.17 H 07/12/20 07/12/20 07/12/20 12:41 11:00 11:00 MPV 11.4 H Neut % (Auto) Lymph % (Auto) 11.3 L Lymph # (Auto) 0.81 L D-Dimer 1.76 H Carbon Dioxide 17 L BUN 32 H Creatinine 2.0 H POC Creatinine Glucose 122 H Calcium 7.8 L Phosphorus Ferritin AST 93 H ALT 55 H Lactate Dehydrogenase Albumin 3.0 L Procalcitonin Meds: Medications Acetaminophen (Tylenol) 650 mg PO Q4-6HP PRN; Protocol PRN Reason: Per Pain Protocol/Fever > 101 Aspirin (Aspirin) 81 mg PO BID [facility] Last Admin: 07/13/20 08:43 Dose: 81 mg Documented by: Atorvastatin Calcium (Lipitor) 40 mg PO QDAY [facility] Last Admin: 07/13/20 08:44 Dose: 40 mg Documented by: Bisacodyl (Dulcolax) 10 mg PA Q2-3DAYS PRN PRN Reason: Constipation Calcium Chloride (Calcium Chloride) 1,000 mg IV ONCE PRN PRN Reason: CA+ = or < 7.8 Stop: 07/13/20 12:00 Last Admin: 07/12/20 21:28 Dose: 1,000 mg Documented by: Cetirizine HCl (Zyrtec) 10 mg PO DAILYP PRN PRN Reason: Allergy Symptoms Dexamethasone (Decadron) 6 mg PO DAILY [facility] Last Admin: 07/13/20 08:44 Dose: 6 mg Documented by: Docusate Sodium (Colace) 100 mg PO BID [facility] Last Admin: 07/13/20 08:43 Dose: 100 mg Documented by: Famotidine (Pepcid) 20 mg PO BID [facility] Last Admin: 07/13/20 08:44 Dose: 20 mg Documented by: Heparin Sodium (Porcine) (Heparin) 5,000 unit SQ Q8 [facility] Last Admin: 07/13/20 05:45 Dose: 5,000 unit Documented by: Hydralazine HCl (Apresoline) 10 mg IV Q4-6HP PRN PRN Reason: Hypertension Potassium Chloride 40 meq/ (Dextrose) 520 mls @ 130 mls/hr IV UD PRN PRN Reason: K+ = or < 3.5 Acetaminophen (Ofirmev) 650 mg in 65 mls @ 130 mls/hr IV Q6HP PRN; Protocol PRN Reason: Per Pain Protocol/Fever > 101 Magnesium Sulfate (Magnesium Sulfate) 2 gm in 50 mls @ 50 mls/hr IV UD PRN PRN Reason: MG = or < 1.7 Ceftriaxone Sodium 2 gm/ (Dextrose) 50 mls @ 100 mls/hr IV DAILY [facility]; Protocol Last Infusion: 07/12/20 18:40 Dose: Infused Documented by: REMDESIVIR 100 mg/ Sodium (Chloride) 250 mls @ 500 mls/hr IV DAILY@1100 [facility] Stop: 07/16/20 11:29 Iron Carb/Multivit/[place]/Folic Acid (Multivitamin W/Minerals) 1 tab PO DAILY [facility] Last Admin: 07/13/20 08:44 Dose: 1 tab Documented by: Melatonin (Melatonin 3mg Tablet) 3 mg PO HSP PRN PRN Reason: Insomnia Metoprolol Succinate (Toprol Xl) 25 mg PO [facility] Last Admin: 07/12/20 21:26 Dose: 25 mg Documented by: Metoprolol Succinate (Toprol Xl) 50 mg PO DAILY [facility] Last Admin: 07/13/20 08:43 Dose: 50 mg Documented by: Metoprolol Tartrate (Lopressor) 5 mg IV Q5M PRN PRN Reason: Heart Rate > 140 bpm Nitroglycerin (Nitrostat) 0.4 mg SL Q15MIN PRN PRN Reason: Chest Pain Ondansetron HCl (Zofran Odt) 4 mg SL Q4-6HP PRN; Protocol PRN Reason: Nausea And Vomiting Ondansetron HCl (Zofran) 4 mg IV Q4-6HP PRN; Protocol PRN Reason: Nausea And Vomiting Polyethylene Glycol (Miralax) 17 gm PO DAILYP PRN PRN Reason: Constipation Potassium Chloride (Klor-Con) 40 meq PO DAILYP PRN PRN Reason: K+ < 3.5 Potassium/Phosphorus/Sodium (Neutra Phos) 2 packet PO DAILY PRN PRN Reason: PHOS <2.5 Promethazine HCl/Codeine (Promethazine-Codeine Syrup) 5 ml PO Q6HP PRN PRN Reason: Cough Pseudoephedrine HCl (Sudafed) 30 mg PO DAILYP PRN PRN Reason: ALLERGY SYMPTOMS Senna/Docusate Sodium (Senna Plus Tablet) 1 tab PO [facility] Last Admin: 07/12/20 21:25 Dose: 1 tab Documented by: Sodium Chloride (Saline Flush) 10 ml IV Q8 [facility] Last Admin: 07/13/20 05:46 Dose: 10 ml Documented by: Tamsulosin HCl (Flomax) 0.4 mg PO QDAY [facility] Last Admin: 07/13/20 08:44 Dose: 0.4 mg Documented by: Tiotropium [place] (Spiriva) 18 mcg INH DAILY [facility] Last Admin: 07/13/20 08:43 Dose: 1 puff Documented by: Zinc Sulfate (Zinc) 50 mg PO DAILY [facility] Last Admin: 07/13/20 08:43 Dose: 50 mg Documented by: Zolpidem Tartrate (Ambien) 10 mg PO HSP PRN PRN Reason: Insomnia A/P Narrative A/P Narrative: * COVID-19 multifocal bilateral pneumonia-continue ICU care/respiratory support/remdesivir/dexamethasone, thrombosis prophylaxis. improved coag inf lammatory markers. Continue COVID-19 precautions * Acute lung injury/acute hypoxic respiratory failure secondary to Covid pneumonia. Profound hypoxemia with PO2/FiO2 less than 150, large AA gradient on ABG. Continue NIV to maintain oxygenation. Serial ABG/interval chest imaging * Systemic inflammatory response syndrome -much improved since admission. * Acute encephalopathy secondary to acute viral syndrome-now back at baseline resolved and * Severe weakness secondary to acute viral syndrome. * Morbid obesity directed therapy/dietary consult * History of CKD stage III creatinine down to 1.8. Improving. GFR 38 * BPH continue tamsulosin * History of CAD continue aspirin/statin/beta-moni/sublingual nitrate * Hypertension metoprolol * Prophylaxis heparin Plan * Continue ICU care * NIV/O2 support/serial ABGs and imaging * follow Coag/inflammatory markers * Remdesivir/dexamethasone * May dc Abx if procal low in 24 hrs * Pre-existing medical condition management home meds * Continue directed therapies/nutrition support/early mobilization * Patient requesting full code Critical care time in excess of 35 minutes on management of hypoxic respiratory failure/noninvasive mechanical ventilation/hypoxemia management Time Spent With Patient Time: Total time spent is greater than 50% in coordination of care (as documented) at patient's floor/unit and/or counseling patient: QUALITY VTE Deep Vein Thrombosis/Pulmonary Embolism Present on Admission: No
[2020-07-13] MEDS: REMDESIVIR 100 MG in 0.9 % SODIUM CHLORIDE 250 ML IV SCH (11:55)
[2020-07-13] MEDS: cefTRIAXone 2 GM in DEXTROSE 5% IN WATER 50 ML IV SCH (11:55)
--- NOTE | 2020-07-13 13:08 | Internal Med Progress Note ---
SUBJECTIVE Subjective Patient information: Note initiated : 07/13/20 at 1:01 pm Service Date, if different from initiated Date: [] Patient: Guillermo Burnette 65 y/o M admitted on 07/12/20 for Shortness of breath. Chief Complaint: [] Interval history: History of present illness: Mr. Burnette is a 65 year old M who lives with his son and grandson presents to the ER following 2 weeks onset of increasing malaise weakness URI symptoms. He was diagnosed with Covid 2 weeks ago however over the last 4 days has gotten increasingly short of breath with exertion. Patient has not been able to perform his ADLs. In the last 24 hours he has become increasingly somnolent and lethargic unable to get out of bed. He endorses loss of appetite. Patient saturation went down to low 80s along with a fever. Subsequently was brought into the ER for evaluation. Initial work-up was consistent with Covid pneumonia on chest imaging. Patient was found in significant distress with tachycardia over 100 and tachypneic at 46. He was started on supplemental oxygen and barely saturating 90% on 4 L. Blood gas 7.3 on 3 L oxygen. White count 7.2, D-dimer 1.76, creatinine 2. Covid positive. Subsequently hospitalist service was consulted in light of Covid pneumonia. Patient does not want to be transferred in the event he deteriorates and not as he wants intubation. He is agreeable noninvasive mechanical ventilation At the time of my evaluation patient is lethargic and distressed breathing rapidly. He was able to answer most of the questions and endorsed to history as above. He denied associated headache, photophobia but endorses to generalized body ache, weakness, lethargy. He denies diarrhea, dysuria. Denies productive sputum but endorses dry cough. He denies rash or joint swelling or pain 07/13-overnight on 55% FiO2. ABG 7.37/33/70 on noninvasive mechanical ventilation. Bilateral infiltrates on chest imaging. On remdesivir/ dexamethasone. Continue thrombosis prophylaxis. GFR 38 LFTs stable. Procalcitonin 0.15. Empiric antibiotics can be discontinued in 24 hours. 07/14 Constitutional Vitals: Vital Signs Temp Pulse Resp BP Pulse Ox 98.8 F 96 H 20 139/95 100 07/13/20 08:00 07/13/20 10:59 07/13/20 10:59 07/13/20 10:55 07/13/20 10:59 Period Temp Pulse Resp BP Sys/Caro Pulse Ox Last 24 Hr 97.7 F-102.1 F 78-102 20-50 95-139/57-95 88-100 Intake and Output 07/12/20 07/13/20 07/13/20 21:59 05:59 13:59 Intake Total 300 50 Output Total 100 Balance 300 -50 Weight 131.995 kg 131.995 kg Patient Weight 07/14/20 05:59 Weight 131.995 kg Intake & Output: Intake & Output 07/12/20 07/13/20 07/13/20 21:59 05:59 13:59 Intake Total 300 50 Output Total 100 Balance 300 -50 Weight 131.995 kg 131.995 kg Intake: IV 300 Veklury 200 mg In Sodium 250 Chloride 0.9% 250 ml @ 500 mls/ hr IV ONCE ONE Rx#:[id number] Rocephin 2 gm In Dextrose 5% in 50 Water 50 ml @ 100 mls/hr IV DAILY [facility] Rx#:[id number] Oral 50 Output: Void Amount 100 Exam: General: Alert, Awake, No acute Distress Eyes/N/T: EOMI, Head/Neck: neck supple, CV: RRR, No murmurs, Pulm: b/l, no wheezing Abd: soft, nontender, +BS x4 Ext: no clubbing/cyanosis/edema Neuro: Alert, no focal deficits, moves all extremities, Skin: warm/dry OBJ DATA Labs CBC & Chem 7: 07/13/20 05:27 07/13/20 05:27 Labs: Abnormal Lab Results 07/13/20 07/13/20 07/13/20 05:27 05:27 05:27 MPV Neut % (Auto) 82.9 H Lymph % (Auto) 9.1 L Lymph # (Auto) 0.72 L D-Dimer 1.31 H Carbon Dioxide 20 L BUN 39 H Creatinine 1.8 H POC Creatinine Glucose 137 H Calcium Phosphorus 4.6 H Ferritin 743.4 H AST 82 H ALT 61 H Lactate Dehydrogenase 499 H Albumin Procalcitonin 07/13/20 07/12/20 07/12/20 05:27 12:56 12:41 MPV Neut % (Auto) Lymph % (Auto) Lymph # (Auto) D-Dimer Carbon Dioxide BUN Creatinine POC Creatinine 2.0 H Glucose Calcium Phosphorus Ferritin AST ALT Lactate Dehydrogenase Albumin Procalcitonin 0.15 H 0.17 H 07/12/20 07/12/20 07/12/20 12:41 11:00 11:00 MPV 11.4 H Neut % (Auto) Lymph % (Auto) 11.3 L Lymph # (Auto) 0.81 L D-Dimer 1.76 H Carbon Dioxide 17 L BUN 32 H Creatinine 2.0 H POC Creatinine Glucose 122 H Calcium 7.8 L Phosphorus Ferritin AST 93 H ALT 55 H Lactate Dehydrogenase Albumin 3.0 L Procalcitonin Meds: Medications Acetaminophen (Tylenol) 650 mg PO Q4-6HP PRN; Protocol PRN Reason: Per Pain Protocol/Fever > 101 Aspirin (Aspirin) 81 mg PO BID [facility] Last Admin: 07/13/20 08:43 Dose: 81 mg Documented by: Atorvastatin Calcium (Lipitor) 40 mg PO QDAY [facility] Last Admin: 07/13/20 08:44 Dose: 40 mg Documented by: Bisacodyl (Dulcolax) 10 mg MS Q2-3DAYS PRN PRN Reason: Constipation Cetirizine HCl (Zyrtec) 10 mg PO DAILYP PRN PRN Reason: Allergy Symptoms Dexamethasone (Decadron) 6 mg PO DAILY [facility] Last Admin: 07/13/20 08:44 Dose: 6 mg Documented by: Docusate Sodium (Colace) 100 mg PO BID [facility] Last Admin: 07/13/20 08:43 Dose: 100 mg Documented by: Famotidine (Pepcid) 20 mg PO BID [facility] Last Admin: 07/13/20 08:44 Dose: 20 mg Documented by: Heparin Sodium (Porcine) (Heparin) 5,000 unit SQ Q8 [facility] Last Admin: 07/13/20 05:45 Dose: 5,000 unit Documented by: Hydralazine HCl (Apresoline) 10 mg IV Q4-6HP PRN PRN Reason: Hypertension Potassium Chloride 40 meq/ (Dextrose) 520 mls @ 130 mls/hr IV UD PRN PRN Reason: K+ = or < 3.5 Acetaminophen (Ofirmev) 650 mg in 65 mls @ 130 mls/hr IV Q6HP PRN; Protocol PRN Reason: Per Pain Protocol/Fever > 101 Magnesium Sulfate (Magnesium Sulfate) 2 gm in 50 mls @ 50 mls/hr IV UD PRN PRN Reason: MG = or < 1.7 Ceftriaxone Sodium 2 gm/ (Dextrose) 50 mls @ 100 mls/hr IV DAILY [facility]; Protocol Last Admin: 07/13/20 11:55 Dose: 100 mls/hr Documented by: REMDESIVIR 100 mg/ Sodium (Chloride) 250 mls @ 500 mls/hr IV DAILY@1100 [facility] Stop: 07/16/20 11:29 Last Admin: 07/13/20 11:55 Dose: 500 mls/hr Documented by: Iron Carb/Multivit/[place]/Folic Acid (Multivitamin W/Minerals) 1 tab PO DAILY [facility] Last Admin: 07/13/20 08:44 Dose: 1 tab Documented by: Melatonin (Melatonin 3mg Tablet) 3 mg PO HSP PRN PRN Reason: Insomnia Metoprolol Succinate (Toprol Xl) 25 mg PO HS [facility] Last Admin: 07/12/20 21:26 Dose: 25 mg Documented by: Metoprolol Succinate (Toprol Xl) 50 mg PO DAILY [facility] Last Admin: 07/13/20 08:43 Dose: 50 mg Documented by: Metoprolol Tartrate (Lopressor) 5 mg IV Q5M PRN PRN Reason: Heart Rate > 140 bpm Nitroglycerin (Nitrostat) 0.4 mg SL Q15MIN PRN PRN Reason: Chest Pain Ondansetron HCl (Zofran Odt) 4 mg SL Q4-6HP PRN; Protocol PRN Reason: Nausea And Vomiting Ondansetron HCl (Zofran) 4 mg IV Q4-6HP PRN; Protocol PRN Reason: Nausea And Vomiting Polyethylene Glycol (Miralax) 17 gm PO DAILYP PRN PRN Reason: Constipation Potassium Chloride (Klor-Con) 40 meq PO DAILYP PRN PRN Reason: K+ < 3.5 Potassium/Phosphorus/Sodium (Neutra Phos) 2 packet PO DAILY PRN PRN Reason: PHOS <2.5 Promethazine HCl/Codeine (Promethazine-Codeine Syrup) 5 ml PO Q6HP PRN PRN Reason: Cough Pseudoephedrine HCl (Sudafed) 30 mg PO DAILYP PRN PRN Reason: ALLERGY SYMPTOMS Senna/Docusate Sodium (Senna Plus Tablet) 1 tab PO HS [facility] Last Admin: 07/12/20 21:25 Dose: 1 tab Documented by: Sodium Chloride (Saline Flush) 10 ml IV Q8 [facility] Last Admin: 07/13/20 05:46 Dose: 10 ml Documented by: Tamsulosin HCl (Flomax) 0.4 mg PO QDAY [facility] Last Admin: 07/13/20 08:44 Dose: 0.4 mg Documented by: Tiotropium [place] (Spiriva) 18 mcg INH DAILY [facility] Last Admin: 07/13/20 08:43 Dose: 1 puff Documented by: Zinc Sulfate (Zinc) 50 mg PO DAILY [facility] Last Admin: 07/13/20 08:43 Dose: 50 mg Documented by: Zolpidem Tartrate (Ambien) 10 mg PO HSP PRN PRN Reason: Insomnia A/P Narrative A/P Narrative: A: *COVID-19 PNA: -improved coag/inflammatory markers. *Acute lung injury/acute hypoxic respiratory failure: 2/2 above -Profound hypoxemia with PO2/FiO2 less than 150, large AA gradient on ABG. Continue NIV to maintain oxygenation. -on CPAP with 55% fiO2 *SIRS: much improved *Acute encephalopathy: 2/2 acute viral syndrome, now back at baseline resolved and *Severe weakness: 2/2 acute viral syndrome. *Morbid obesity: *CKD III: *CAD: home aspirin/statin/BB *HTN: bb Plan: -Continue ICU care -NIV/O2 support/serial ABGs and imaging -follow Coag/inflammatory markers -Remdesivir/dexamethasone -May dc Abx if procal low in 24 hrs -cont home BB/statin/ASA -Continue directed therapies/nutrition support/early mobilization,pt/ot -ppx: Heparin full code Time Spent With Patient Time: Total time spent is greater than 50% in coordination of care (as documented) at patient's floor/unit and/or counseling patient: QUALITY VTE Deep Vein Thrombosis/Pulmonary Embolism Present on Admission: No
[2020-07-13] MEDS: METOPROLOL SUCCINATE 25 MG TAB.XL.24H PO SCH (21:17)
[2020-07-13] MEDS: SENNOSIDES/DOCUSATE SODIUM 1 TAB TABLET PO SCH (21:18)
[2020-07-14] MEDS: 0.9 % SODIUM CHLORIDE 10 ML SYRINGE IV SCH ×3 (05:20→21:06)
[2020-07-14] MEDS: HEPARIN 5,000 UNIT/ML VIAL SQ SCH ×3 (05:20→21:07)
[2020-07-14 07:32] LABS: ALT/SGPT 67 U/L (<40); AST/SGOT 72 U/L (<40); Albumin 3.3 gm/dL (3.2-5.2); Alkaline Phosphatase 49 U/L (39-117); Bilirubin,Direct < 0.2 mg/dL (<0.3); Bilirubin,Total 0.5 mg/dL (0.1-1.0); Blood Urea Nitrogen 51 mg/dL (8-23); Carbon Dioxide 22 mmol/L (22-30); Chloride 102 mmol/L (96-108); Globulin 3.3 gm/dL (2.2-3.7); Glomerular Filtration Rate 38; Glucose 139 mg/dL (70-105); Lactate Dehydrogenase 563 U/L (135-225); Triglycerides 68 mg/dL (<150); Uric Acid 7.9 mg/dL (2.5-8.0)
[2020-07-14 07:36] LABS: C-Reactive Protein 3.3 mg/dL (0.03-0.80)
[2020-07-14 07:41] LABS: Ferritin 790.3 ng/mL (30.0-400.0)
--- NOTE | 2020-07-14 07:52 | Internal Med Progress Note ---
SUBJECTIVE Subjective Patient information: Note initiated : 07/14/20 at 7:47 am Service Date, if different from initiated Date: [] Patient: Guillermo Burnette 65 y/o M admitted on 07/12/20 for Shortness of breath. Chief Complaint: [] Interval history: History of present illness: Mr. Burnette is a 65 year old M who lives with his son and grandson presents to the ER following 2 weeks onset of increasing malaise weakness URI symptoms. He was diagnosed with Covid 2 weeks ago however over the last 4 days has gotten increasingly short of breath with exertion. Patient has not been able to perform his ADLs. In the last 24 hours he has become increasingly somnolent and lethargic unable to get out of bed. He endorses loss of appetite. Patient saturation went down to low 80s along with a fever. Subsequently was brought into the ER for evaluation. Initial work-up was consistent with Covid pneumonia on chest imaging. Patient was found in significant distress with tachycardia over 100 and tachypneic at 46. He was started on supplemental oxygen and barely saturating 90% on 4 L. Blood gas 7.3 on 3 L oxygen. White count 7.2, D-dimer 1.76, creatinine 2. Covid positive. Subsequently hospitalist service was consulted in light of Covid pneumonia. Patient does not want to be transferred in the event he deteriorates and not as he wants intubation. He is agreeable noninvasive mechanical ventilation At the time of my evaluation patient is lethargic and distressed breathing rapidly. He was able to answer most of the questions and endorsed to history as above. He denied associated headache, photophobia but endorses to generalized body ache, weakness, lethargy. He denies diarrhea, dysuria. Denies productive sputum but endorses dry cough. He denies rash or joint swelling or pain 07/13-overnight on 55% FiO2. ABG 7.37/33/70 on noninvasive mechanical ventilation. Bilateral infiltrates on chest imaging. On remdesivir/ dexamethasone. Continue thrombosis prophylaxis. GFR 38 LFTs stable. Procalcitonin 0.15. Empiric antibiotics can be discontinued in 24 hours. 07/14 Unable to wean him below 55% this morning. Although he states he feels maybe a little better. Occasional cough. No other complaints. Review of Systems: denies headache/fever/chills/nausea/vomiting/chest or abdominal pain/diarrhea. Otherwise see above. Constitutional Vitals: Vital Signs Temp Pulse Resp BP Pulse Ox 97.8 F 91 H 25 H 126/82 98 07/14/20 03:37 07/14/20 07:05 07/14/20 07:05 07/14/20 04:00 07/14/20 07:05 Period Temp Pulse Resp BP Sys/Caro Pulse Ox Last 24 Hr 97.8 F-98.8 F 80-100 16-31 102-139/67-95 94-100 Intake and Output 07/13/20 07/14/20 07/14/20 21:59 05:59 13:59 Intake Total 480 400 Output Total 600 Balance -120 400 Weight 136.758 kg Intake & Output: Intake & Output 07/13/20 07/14/20 07/14/20 21:59 05:59 13:59 Intake Total 480 400 Output Total 600 Balance -120 400 Weight 136.758 kg Intake: Oral 480 400 Output: Urine Catheter Amount 600 Straight 600 Other: Meal Dinner Percent of Meal Consumed 75% Feeding Ability Independent Urine Appearance Straight Clear Urine Color Straight Tea Colored Stool Size Moderate Stool Color Brown Stool Consistency [place] Loose # Voids 1 Exam: General: Alert, Awake, No acute Distress Eyes/N/T: EOMI, Head/Neck: neck supple, CV: RRR, No murmurs, Pulm: mild rhonchi/rales bilaterally, no wheezing Abd: soft, nontender, +BS x4 Ext: no clubbing/cyanosis, mild b/l LE edema Neuro: Alert, no focal deficits, moves all extremities, Skin: warm/dry OBJ DATA Labs CBC & Chem 7: 07/13/20 05:27 07/14/20 05:27 Labs: Abnormal Lab Results 07/14/20 07/14/20 07/14/20 05:27 05:27 05:27 MPV Neut % (Auto) Lymph % (Auto) Lymph # (Auto) D-Dimer Carbon Dioxide BUN 51 H Creatinine 1.8 H POC Creatinine Glucose 139 H Calcium Phosphorus Ferritin 790.3 H AST 72 H ALT 67 H Lactate Dehydrogenase 563 H Total Creatine Kinase 437 H C-Reactive Protein 3.30 H Albumin Procalcitonin 07/13/20 07/13/20 07/13/20 05:27 05:27 05:27 MPV Neut % (Auto) 82.9 H Lymph % (Auto) 9.1 L Lymph # (Auto) 0.72 L D-Dimer 1.31 H Carbon Dioxide 20 L BUN 39 H Creatinine 1.8 H POC Creatinine Glucose 137 H Calcium Phosphorus 4.6 H Ferritin 743.4 H AST 82 H ALT 61 H Lactate Dehydrogenase 499 H Total Creatine Kinase C-Reactive Protein Albumin Procalcitonin 07/13/20 07/12/20 07/12/20 05:27 12:56 12:41 MPV Neut % (Auto) Lymph % (Auto) Lymph # (Auto) D-Dimer Carbon Dioxide BUN Creatinine POC Creatinine 2.0 H Glucose Calcium Phosphorus Ferritin AST ALT Lactate Dehydrogenase Total Creatine Kinase C-Reactive Protein Albumin Procalcitonin 0.15 H 0.17 H 07/12/20 07/12/20 07/12/20 12:41 11:00 11:00 MPV 11.4 H Neut % (Auto) Lymph % (Auto) 11.3 L Lymph # (Auto) 0.81 L D-Dimer 1.76 H Carbon Dioxide 17 L BUN 32 H Creatinine 2.0 H POC Creatinine Glucose 122 H Calcium 7.8 L Phosphorus Ferritin AST 93 H ALT 55 H Lactate Dehydrogenase Total Creatine Kinase C-Reactive Protein Albumin 3.0 L Procalcitonin Meds: Medications Acetaminophen (Tylenol) 650 mg PO Q4-6HP PRN; Protocol PRN Reason: Per Pain Protocol/Fever > 101 Aspirin (Aspirin) 81 mg PO BID [facility] Last Admin: 07/13/20 21:17 Dose: 81 mg Documented by: Atorvastatin Calcium (Lipitor) 40 mg PO QDAY [facility] Last Admin: 07/13/20 08:44 Dose: 40 mg Documented by: Bisacodyl (Dulcolax) 10 mg AL Q2-3DAYS PRN PRN Reason: Constipation Cetirizine HCl (Zyrtec) 10 mg PO DAILYP PRN PRN Reason: Allergy Symptoms Dexamethasone (Decadron) 6 mg PO DAILY [facility] Last Admin: 07/13/20 08:44 Dose: 6 mg Documented by: Docusate Sodium (Colace) 100 mg PO BID [facility] Last Admin: 07/13/20 21:17 Dose: 100 mg Documented by: Famotidine (Pepcid) 20 mg PO BID [facility] Last Admin: 07/13/20 21:18 Dose: 20 mg Documented by: Heparin Sodium (Porcine) (Heparin) 5,000 unit SQ Q8 [facility] Last Admin: 07/14/20 05:20 Dose: 5,000 unit Documented by: Hydralazine HCl (Apresoline) 10 mg IV Q4-6HP PRN PRN Reason: Hypertension Potassium Chloride 40 meq/ (Dextrose) 520 mls @ 130 mls/hr IV UD PRN PRN Reason: K+ = or < 3.5 Acetaminophen (Ofirmev) 650 mg in 65 mls @ 130 mls/hr IV Q6HP PRN; Protocol PRN Reason: Per Pain Protocol/Fever > 101 Magnesium Sulfate (Magnesium Sulfate) 2 gm in 50 mls @ 50 mls/hr IV UD PRN PRN Reason: MG = or < 1.7 Ceftriaxone Sodium 2 gm/ (Dextrose) 50 mls @ 100 mls/hr IV DAILY [facility]; Protocol Last Infusion: 07/13/20 12:30 Dose: Infused Documented by: REMDESIVIR 100 mg/ Sodium (Chloride) 250 mls @ 500 mls/hr IV DAILY@1100 [facility] Stop: 07/16/20 11:29 Last Infusion: 07/13/20 12:30 Dose: Infused Documented by: Iron Carb/Multivit/[employer]/App Developer/Folic Acid (Multivitamin W/Minerals) 1 tab PO DAILY [facility] Last Admin: 07/13/20 08:44 Dose: 1 tab Documented by: Melatonin (Melatonin 3mg Tablet) 3 mg PO HSP PRN PRN Reason: Insomnia Metoprolol Succinate (Toprol Xl) 25 mg PO [facility] Last Admin: 07/13/20 21:17 Dose: 25 mg Documented by: Metoprolol Succinate (Toprol Xl) 50 mg PO DAILY [facility] Last Admin: 07/13/20 08:43 Dose: 50 mg Documented by: Metoprolol Tartrate (Lopressor) 5 mg IV Q5M PRN PRN Reason: Heart Rate > 140 bpm Nitroglycerin (Nitrostat) 0.4 mg SL Q15MIN PRN PRN Reason: Chest Pain Ondansetron HCl (Zofran Odt) 4 mg SL Q4-6HP PRN; Protocol PRN Reason: Nausea And Vomiting Ondansetron HCl (Zofran) 4 mg IV Q4-6HP PRN; Protocol PRN Reason: Nausea And Vomiting Polyethylene Glycol (Miralax) 17 gm PO DAILYP PRN PRN Reason: Constipation Potassium Chloride (Klor-Con) 40 meq PO DAILYP PRN PRN Reason: K+ < 3.5 Potassium/Phosphorus/Sodium (Neutra Phos) 2 packet PO DAILY PRN PRN Reason: PHOS <2.5 Promethazine HCl/Codeine (Promethazine-Codeine Syrup) 5 ml PO Q6HP PRN PRN Reason: Cough Pseudoephedrine HCl (Sudafed) 30 mg PO DAILYP PRN PRN Reason: ALLERGY SYMPTOMS Senna/Docusate Sodium (Senna Plus Tablet) 1 tab PO HS [facility] Last Admin: 07/13/20 21:18 Dose: 1 tab Documented by: Sodium Chloride (Saline Flush) 10 ml IV Q8 [facility] Last Admin: 07/14/20 05:20 Dose: 10 ml Documented by: Tamsulosin HCl (Flomax) 0.4 mg PO QDAY [facility] Last Admin: 07/13/20 08:44 Dose: 0.4 mg Documented by: Tiotropium [place] (Spiriva) 18 mcg INH DAILY [facility] Last Admin: 07/13/20 08:43 Dose: 1 puff Documented by: Zinc Sulfate (Zinc) 50 mg PO DAILY [facility] Last Admin: 07/13/20 08:43 Dose: 50 mg Documented by: Zolpidem Tartrate (Ambien) 10 mg PO HSP PRN PRN Reason: Insomnia A/P Narrative A/P Narrative: A: *COVID-19 PNA: -improved coag/inflammatory markers. *Acute lung injury/acute hypoxic respiratory failure: 2/2 above -Profound hypoxemia with PO2/FiO2 less than 150, large AA gradient on ABG. Continue NIV to maintain oxygenation. -on CPAP with 55% fiO2 *SIRS: much improved *Acute encephalopathy: 2/2 acute viral syndrome, now back at baseline *Severe weakness: 2/2 acute viral syndrome. *Morbid obesity: *CKD III: *CAD: home aspirin/statin/BB *HTN: bb Plan: -NIV/O2 support/serial ABGs and imaging -follow Coag/inflammatory markers -Remdesivir/dexamethasone -dc Abx -cont home BB/statin/ASA -Continue directed therapies/nutrition support/early mobilization,pt/ot -ppx: Heparin full code Time Spent With Patient Time: Total time spent is greater than 50% in coordination of care (as documented) at patient's floor/unit and/or counseling patient: QUALITY VTE Deep Vein Thrombosis/Pulmonary Embolism Present on Admission: No
[2020-07-14] MEDS ORDERED: FUROSEMIDE 40 MG/4 ML VIAL IV ONE (08:46)
--- NOTE | 2020-07-14 09:53 | XRay Report ---
HISTORY: Short of breath, follow-up pneumonia FINDINGS: Moderate-sized alveolar infiltrates are present centrally in both lungs extending into the lower lobes. There is relative sparing of the upper lobes. No pleural effusion is present. The heart is moderately enlarged. Pulmonary vessels, best seen in the upper lobes are normal in caliber. Comparison with the prior exam from 07/12/20 shows no significant change. IMPRESSION: Stable moderate bilateral pneumonia Interpreted and Authenticated by: Ghulam Quarles 07/14/20
[2020-07-14] MEDS: ZINC SULFATE 50 MG CAPSULE PO SCH (10:38)
[2020-07-14] MEDS: DEXAMETHASONE 4 MG TABLET PO SCH (10:38)
[2020-07-14] MEDS: METOPROLOL SUCCINATE 50 MG TAB.XL.24H PO SCH (10:38)
[2020-07-14] MEDS: cefTRIAXone 2 GM in DEXTROSE 5% IN WATER 50 ML IV SCH (10:38)
[2020-07-14] MEDS: TIOTROPIUM BROMIDE 18 MCG INHALANT INH SCH (10:38)
[2020-07-14] MEDS: MULTIVIT,THER IRON,CA,FA & MIN 1 TABLET PO SCH (10:38)
[2020-07-14] MEDS: ASPIRIN 81 MG TAB.CHEW PO SCH ×2 (10:38→20:09)
[2020-07-14] MEDS: DOCUSATE SODIUM 100 MG CAPSULE PO SCH ×2 (10:39→20:09)
[2020-07-14] MEDS: FAMOTIDINE 20 MG TABLET PO SCH ×2 (10:39→20:09)
[2020-07-14] MEDS: TAMSULOSIN 0.4 MG CAPSULE PO SCH (10:39)
[2020-07-14] MEDS: ATORVASTATIN 40 MG TABLET PO SCH (10:39)
[2020-07-14] MEDS: ACETAMINOPHEN 650 MG/65 ML BOTTLE IV PRN (10:58)
[2020-07-14] MEDS: REMDESIVIR 100 MG in 0.9 % SODIUM CHLORIDE 250 ML IV SCH (10:58)
[2020-07-14] MEDS: LORazepam 2 MG/ML VIAL IV PRN ×2 (12:56→21:08)
[2020-07-14] MEDS ORDERED: LORazepam 2 MG/ML VIAL ONE (13:00)
[2020-07-14] MEDS: SENNOSIDES/DOCUSATE SODIUM 1 TAB TABLET PO SCH ×2 (20:08→20:48)
[2020-07-14] MEDS: ZOLPIDEM 5 MG TABLET PO PRN (20:08)
[2020-07-14] MEDS: METOPROLOL SUCCINATE 25 MG TAB.XL.24H PO SCH (20:09)
[2020-07-15] MEDS: LORazepam 2 MG/ML VIAL IV PRN (02:28)
[2020-07-15] MEDS: HEPARIN 5,000 UNIT/ML VIAL SQ SCH ×2 (05:39→15:00)
[2020-07-15] MEDS: 0.9 % SODIUM CHLORIDE 10 ML SYRINGE IV SCH ×3 (05:39→21:34)
[2020-07-15] MEDS: ACETAMINOPHEN 650 MG/65 ML BOTTLE IV PRN (06:51)
[2020-07-15 07:16] LABS: C-Reactive Protein 2.8 mg/dL (0.03-0.80)
[2020-07-15 07:19] LABS: ALT/SGPT 54 U/L (<40); AST/SGOT 58 U/L (<40); Alkaline Phosphatase 52 U/L (39-117); Bilirubin,Direct 0.2 mg/dL (<0.3); Bilirubin,Total 0.5 mg/dL (0.1-1.0); Blood Urea Nitrogen 51 mg/dL (8-23); Calcium 8.6 mg/dL (8.6-10.4); Carbon Dioxide 22 mmol/L (22-30); Chloride 105 mmol/L (96-108); Globulin 3.1 gm/dL (2.2-3.7); Glomerular Filtration Rate 41; Glucose 109 mg/dL (70-105); Lactate Dehydrogenase 600 U/L (135-225); Phosphorous 2.6 mg/dL (2.5-4.5); Triglycerides 68 mg/dL (<150); Uric Acid 8.5 mg/dL (2.5-8.0)
[2020-07-15 07:30] LABS: Ferritin 644.6 ng/mL (30.0-400.0)
--- NOTE | 2020-07-15 07:30 | Internal Med Progress Note ---
SUBJECTIVE Subjective Patient information: Note initiated : 07/15/20 at 7:27 am Service Date, if different from initiated Date: [] Patient: Guillermo Burnette 65 y/o M admitted on 07/12/20 for Shortness of breath. Chief Complaint: [] Interval history: History of present illness: Mr. Burnette is a 65 year old M who lives with his son and grandson presents to the ER following 2 weeks onset of increasing malaise weakness URI symptoms. He was diagnosed with Covid 2 weeks ago however over the last 4 days has gotten increasingly short of breath with exertion. Patient has not been able to perform his ADLs. In the last 24 hours he has become increasingly somnolent and lethargic unable to get out of bed. He endorses loss of appetite. Patient saturation went down to low 80s along with a fever. Subsequently was brought into the ER for evaluation. Initial work-up was consistent with Covid pneumonia on chest imaging. Patient was found in significant distress with tachycardia over 100 and tachypneic at 46. He was started on supplemental oxygen and barely saturating 90% on 4 L. Blood gas 7.3 on 3 L oxygen. White count 7.2, D-dimer 1.76, creatinine 2. Covid positive. Subsequently hospitalist service was consulted in light of Covid pneumonia. Patient does not want to be transferred in the event he deteriorates and not as he wants intubation. He is agreeable noninvasive mechanical ventilation At the time of my evaluation patient is lethargic and distressed breathing rapidly. He was able to answer most of the questions and endorsed to history as above. He denied associated headache, photophobia but endorses to generalized body ache, weakness, lethargy. He denies diarrhea, dysuria. Denies productive sputum but endorses dry cough. He denies rash or joint swelling or pain 07/13-overnight on 55% FiO2. ABG 7.37/33/70 on noninvasive mechanical ventilation. Bilateral infiltrates on chest imaging. On remdesivir/ dexamethasone. Continue thrombosis prophylaxis. GFR 38 LFTs stable. Procalcitonin 0.15. Empiric antibiotics can be discontinued in 24 hours. 07/14 Unable to wean him below 55% this morning. Although he states he feels maybe a little better. Occasional cough. No other complaints. 07/15 agitated with some confusion last night. Resting comfortably this morning. Good oxygenation on 55%. Will wean down FiO2. Inflammatory markers improving Review of Systems difficult to obtain given the patient being on BiPAP. Constitutional Vitals: Vital Signs Temp Pulse Resp BP Pulse Ox 99.8 F H 111 H 12 153/77 91 07/15/20 06:51 07/15/20 07:00 07/15/20 07:00 07/15/20 06:35 07/15/20 07:04 Period Temp Pulse Resp BP Sys/Caro Pulse Ox Last 24 Hr 97.8 F-101.5 F 75-119 0-36 98-173/61-150 87-100 Intake and Output 07/14/20 07/15/20 07/15/20 21:59 05:59 13:59 Intake Total 480 Output Total 1 200 Balance 479 -200 Weight 131.315 kg Intake & Output: Intake & Output 07/14/20 07/15/20 07/15/20 21:59 05:59 13:59 Intake Total 480 Output Total 1 200 Balance 479 -200 Weight 131.315 kg Intake: Oral 480 Output: Void Amount 0 200 # of times incontinent of urine 1 Other: Meal Dinner Percent of Meal Consumed 75% Feeding Ability Assist with Tray Set Up Urine Appearance Clear Urine Color Dark Yellow # Voids 1 1 1 # Bowel Movements 0 # of times incontinent of 1 Bowels Exam: General: sleeping but Awakens, No acute Distress, obese Eyes/N/T: EOMI, Head/Neck: neck supple, CV: RRR, No murmurs, Pulm: mild rhonchi/rales bilaterally, no wheezing Abd: soft, nontender, +BS x4 Ext: no clubbing/cyanosis, mild b/l LE edema Neuro: answers questions but difficult to hear given BiPAP, no focal deficits, moves all extremities, Skin: warm/dry OBJ DATA Labs CBC & Chem 7: 07/13/20 05:27 07/15/20 05:25 Labs: Abnormal Lab Results 07/15/20 07/15/20 07/14/20 05:25 05:25 05:27 MPV Neut % (Auto) Lymph % (Auto) Lymph # (Auto) D-Dimer Carbon Dioxide BUN 51 H Creatinine 1.7 H POC Creatinine Glucose 109 H Uric Acid 8.5 H Calcium Phosphorus Ferritin 790.3 H AST 58 H ALT 54 H Lactate Dehydrogenase 600 H Total Creatine Kinase 366 H C-Reactive Protein 2.80 H Albumin 3.0 L Procalcitonin 07/14/20 07/14/20 07/14/20 05:27 05:27 05:27 MPV Neut % (Auto) Lymph % (Auto) Lymph # (Auto) D-Dimer 1.10 H Carbon Dioxide BUN 51 H Creatinine 1.8 H POC Creatinine Glucose 139 H Uric Acid Calcium Phosphorus Ferritin AST 72 H ALT 67 H Lactate Dehydrogenase 563 H Total Creatine Kinase 437 H C-Reactive Protein 3.30 H Albumin Procalcitonin 07/14/20 07/13/20 07/13/20 05:27 05:27 05:27 MPV Neut % (Auto) Lymph % (Auto) Lymph # (Auto) D-Dimer 1.31 H Carbon Dioxide 20 L BUN 39 H Creatinine 1.8 H POC Creatinine Glucose 137 H Uric Acid Calcium Phosphorus 4.6 H Ferritin 743.4 H AST 82 H ALT 61 H Lactate Dehydrogenase 499 H Total Creatine Kinase C-Reactive Protein Albumin Procalcitonin 0.12 H 07/13/20 07/13/20 07/12/20 05:27 05:27 12:56 MPV Neut % (Auto) 82.9 H Lymph % (Auto) 9.1 L Lymph # (Auto) 0.72 L D-Dimer Carbon Dioxide BUN Creatinine POC Creatinine 2.0 H Glucose Uric Acid Calcium Phosphorus Ferritin AST ALT Lactate Dehydrogenase Total Creatine Kinase C-Reactive Protein Albumin Procalcitonin 0.15 H 07/12/20 07/12/20 07/12/20 12:41 12:41 11:00 MPV Neut % (Auto) Lymph % (Auto) Lymph # (Auto) D-Dimer 1.76 H Carbon Dioxide 17 L BUN 32 H Creatinine 2.0 H POC Creatinine Glucose 122 H Uric Acid Calcium 7.8 L Phosphorus Ferritin AST 93 H ALT 55 H Lactate Dehydrogenase Total Creatine Kinase C-Reactive Protein Albumin 3.0 L Procalcitonin 0.17 H 07/12/20 11:00 MPV 11.4 H Neut % (Auto) Lymph % (Auto) 11.3 L Lymph # (Auto) 0.81 L D-Dimer Carbon Dioxide BUN Creatinine POC Creatinine Glucose Uric Acid Calcium Phosphorus Ferritin AST ALT Lactate Dehydrogenase Total Creatine Kinase C-Reactive Protein Albumin Procalcitonin Meds: Medications Acetaminophen (Tylenol) 650 mg PO Q4-6HP PRN; Protocol PRN Reason: Per Pain Protocol/Fever > 101 Aspirin (Aspirin) 81 mg PO BID [facility] Last Admin: 07/14/20 20:09 Dose: 81 mg Documented by: Atorvastatin Calcium (Lipitor) 40 mg PO QDAY [facility] Last Admin: 07/14/20 10:39 Dose: 40 mg Documented by: Bisacodyl (Dulcolax) 10 mg ND Q2-3DAYS PRN PRN Reason: Constipation Cetirizine HCl (Zyrtec) 10 mg PO DAILYP PRN PRN Reason: Allergy Symptoms Dexamethasone (Decadron) 6 mg PO DAILY [facility] Last Admin: 07/14/20 10:38 Dose: 6 mg Documented by: Docusate Sodium (Colace) 100 mg PO BID [facility] Last Admin: 07/14/20 20:09 Dose: 100 mg Documented by: Famotidine (Pepcid) 20 mg PO BID [facility] Last Admin: 07/14/20 20:09 Dose: 20 mg Documented by: Heparin Sodium (Porcine) (Heparin) 5,000 unit SQ Q8 [facility] Last Admin: 07/15/20 05:39 Dose: 5,000 unit Documented by: Hydralazine HCl (Apresoline) 10 mg IV Q4-6HP PRN PRN Reason: Hypertension Potassium Chloride 40 meq/ (Dextrose) 520 mls @ 130 mls/hr IV UD PRN PRN Reason: K+ = or < 3.5 Acetaminophen (Ofirmev) 650 mg in 65 mls @ 130 mls/hr IV Q6HP PRN; Protocol PRN Reason: Per Pain Protocol/Fever > 101 Last Admin: 07/15/20 06:51 Dose: 130 mls/hr Documented by: Magnesium Sulfate (Magnesium Sulfate) 2 gm in 50 mls @ 50 mls/hr IV UD PRN PRN Reason: MG = or < 1.7 Ceftriaxone Sodium 2 gm/ (Dextrose) 50 mls @ 100 mls/hr IV DAILY [facility]; Protocol Last Infusion: 07/14/20 11:08 Dose: Infused Documented by: REMDESIVIR 100 mg/ Sodium (Chloride) 250 mls @ 500 mls/hr IV DAILY@1100 [facility] Stop: 07/16/20 11:29 Last Infusion: 07/14/20 11:28 Dose: Infused Documented by: Iron Carb/Multivit/Stock [employer]er/Folic Acid (Multivitamin W/Minerals) 1 tab PO DAILY [facility] Last Admin: 07/14/20 10:38 Dose: 1 tab Documented by: Lorazepam (Ativan) 0.5 mg IV Q6HP PRN PRN Reason: ANXIETY/SEDATION Last Admin: 07/15/20 02:28 Dose: 0.5 mg Documented by: Melatonin (Melatonin 3mg Tablet) 3 mg PO HSP PRN PRN Reason: Insomnia Metoprolol Succinate (Toprol Xl) 25 mg PO HS [facility] Last Admin: 07/14/20 20:09 Dose: 25 mg Documented by: Metoprolol Succinate (Toprol Xl) 50 mg PO DAILY [facility] Last Admin: 07/14/20 10:38 Dose: 50 mg Documented by: Metoprolol Tartrate (Lopressor) 5 mg IV Q5M PRN PRN Reason: Heart Rate > 140 bpm Nitroglycerin (Nitrostat) 0.4 mg SL Q15MIN PRN PRN Reason: Chest Pain Ondansetron HCl (Zofran Odt) 4 mg SL Q4-6HP PRN; Protocol PRN Reason: Nausea And Vomiting Ondansetron HCl (Zofran) 4 mg IV Q4-6HP PRN; Protocol PRN Reason: Nausea And Vomiting Polyethylene Glycol (Miralax) 17 gm PO DAILYP PRN PRN Reason: Constipation Potassium Chloride (Klor-Con) 40 meq PO DAILYP PRN PRN Reason: K+ < 3.5 Potassium/Phosphorus/Sodium (Neutra Phos) 2 packet PO DAILY PRN PRN Reason: PHOS <2.5 Promethazine HCl/Codeine (Promethazine-Codeine Syrup) 5 ml PO Q6HP PRN PRN Reason: Cough Pseudoephedrine HCl (Sudafed) 30 mg PO DAILYP PRN PRN Reason: ALLERGY SYMPTOMS Senna/Docusate Sodium (Senna Plus Tablet) 1 tab PO [facility] Last Admin: 07/14/20 20:48 Dose: Not Given Documented by: Sodium Chloride (Saline Flush) 10 ml IV Q8 [facility] Last Admin: 07/15/20 05:39 Dose: 10 ml Documented by: Tamsulosin HCl (Flomax) 0.4 mg PO QDAY [facility] Last Admin: 07/14/20 10:39 Dose: 0.4 mg Documented by: Tiotropium [place] (Spiriva) 18 mcg INH DAILY [facility] Last Admin: 07/14/20 10:38 Dose: 1 puff Documented by: Zinc Sulfate (Zinc) 50 mg PO DAILY [facility] Last Admin: 07/14/20 10:38 Dose: 50 mg Documented by: Zolpidem Tartrate (Ambien) 10 mg PO HSP PRN PRN Reason: Insomnia Last Admin: 07/14/20 20:08 Dose: 10 mg Documented by: A/P Narrative A/P Narrative: A: *COVID-19 PNA: -improved coag/inflammatory markers. *Acute lung injury/acute hypoxic respiratory failure: 2/2 above -Profound hypoxemia with PO2/FiO2 less than 150, large AA gradient on ABG. Continue NIV to maintain oxygenation. -on Bipap with 50% fiO2, slow improvement *Sepsis: improved *Acute encephalopathy: 2/2 critical care illness/acute viral syndrome, waxes/wanes *Severe weakness: 2/2 acute viral syndrome. *Transaminitis, mild: 2/2 viral illness *Morbid obesity: *CKD III: *CAD: home aspirin/statin/BB *HTN: bb * Plan: -NIV/O2 support - weaning -self prone positioning -Remdesivir/dexamethasone -empiric Abx -cont home BB/statin/ASA -Continue directed therapies/nutrition support/early mobilization,pt/ot -ppx: lovenox full code Time Spent With Patient Time: Total time spent is greater than 50% in coordination of care (as documented) at patient's floor/unit and/or counseling patient: QUALITY VTE Deep Vein Thrombosis/Pulmonary Embolism Present on Admission: No
[2020-07-15] MEDS ORDERED: FLU VACC QS2020-21(6MOS UP)/PF 60 MCG/0.5 ML SYRINGE IM ONE (10:00)
[2020-07-15] MEDS: ATORVASTATIN 40 MG TABLET PO SCH (10:10)
[2020-07-15] MEDS: MULTIVIT,THER IRON,CA,FA & MIN 1 TABLET PO SCH (10:10)
[2020-07-15] MEDS: TAMSULOSIN 0.4 MG CAPSULE PO SCH (10:10)
[2020-07-15] MEDS: ASPIRIN 81 MG TAB.CHEW PO SCH ×2 (10:10→21:08)
[2020-07-15] MEDS: DOCUSATE SODIUM 100 MG CAPSULE PO SCH ×2 (10:10→21:09)
[2020-07-15] MEDS: METOPROLOL SUCCINATE 50 MG TAB.XL.24H PO SCH (10:10)
[2020-07-15] MEDS: DEXAMETHASONE 4 MG TABLET PO SCH (10:10)
[2020-07-15] MEDS: cefTRIAXone 2 GM in DEXTROSE 5% IN WATER 50 ML IV SCH (10:11)
[2020-07-15] MEDS: TIOTROPIUM BROMIDE 18 MCG INHALANT INH SCH (10:11)
[2020-07-15] MEDS: REMDESIVIR 100 MG in 0.9 % SODIUM CHLORIDE 250 ML IV SCH (10:11)
[2020-07-15] MEDS: FAMOTIDINE 20 MG TABLET PO SCH ×2 (13:33→21:08)
[2020-07-15] MEDS: ZINC SULFATE 50 MG CAPSULE PO SCH (13:33)
[2020-07-15] MEDS ORDERED: ENOXAPARIN 30 MG/0.3 ML SYRINGE SQ SCH (21:00)
[2020-07-15] MEDS: SENNOSIDES/DOCUSATE SODIUM 1 TAB TABLET PO SCH (21:09)
[2020-07-15] MEDS: ZOLPIDEM 5 MG TABLET PO PRN (21:09)
[2020-07-15] MEDS: ENOXAPARIN 40 MG/0.4 ML SYRINGE SQ SCH (21:09)
[2020-07-15] MEDS: METOPROLOL SUCCINATE 25 MG TAB.XL.24H PO SCH (21:09)
[2020-07-16] MEDS: 0.9 % SODIUM CHLORIDE 10 ML SYRINGE IV SCH ×5 (04:56→20:00)
[2020-07-16] MEDS: TAMSULOSIN 0.4 MG CAPSULE PO SCH (07:33)
[2020-07-16] MEDS: ZINC SULFATE 50 MG CAPSULE PO SCH (07:33)
[2020-07-16] MEDS: MULTIVIT,THER IRON,CA,FA & MIN 1 TABLET PO SCH (07:33)
[2020-07-16] MEDS: cefTRIAXone 2 GM in DEXTROSE 5% IN WATER 50 ML IV SCH (07:33)
[2020-07-16] MEDS: METOPROLOL SUCCINATE 50 MG TAB.XL.24H PO SCH (07:33)
[2020-07-16] MEDS: DEXAMETHASONE 4 MG TABLET PO SCH (07:33)
[2020-07-16] MEDS: ASPIRIN 81 MG TAB.CHEW PO SCH ×2 (07:33→20:19)
[2020-07-16 07:34] LABS: Blood Urea Nitrogen 46 mg/dL (8-23); Calcium 8.6 mg/dL (8.6-10.4); Carbon Dioxide 20 mmol/L (22-30); Chloride 107 mmol/L (96-108); Glomerular Filtration Rate 44; Glucose 118 mg/dL (70-105)
[2020-07-16] MEDS: ATORVASTATIN 40 MG TABLET PO SCH (07:34)
[2020-07-16] MEDS: DOCUSATE SODIUM 100 MG CAPSULE PO SCH ×2 (07:34→20:20)
[2020-07-16] MEDS: ENOXAPARIN 40 MG/0.4 ML SYRINGE SQ SCH ×2 (07:34→20:20)
--- NOTE | 2020-07-16 07:37 | Internal Med Progress Note ---
SUBJECTIVE Subjective Patient information: Note initiated : 07/16/20 at 7:35 am Service Date, if different from initiated Date: [] Patient: Guillermo Burnette 65 y/o M admitted on 07/12/20 for Shortness of breath. Chief Complaint: [] Interval history: History of present illness: Mr. Burnette is a 65 year old M who lives with his son and grandson presents to the ER following 2 weeks onset of increasing malaise weakness URI symptoms. He was diagnosed with Covid 2 weeks ago however over the last 4 days has gotten increasingly short of breath with exertion. Patient has not been able to perform his ADLs. In the last 24 hours he has become increasingly somnolent and lethargic unable to get out of bed. He endorses loss of appetite. Patient saturation went down to low 80s along with a fever. Subsequently was brought into the ER for evaluation. Initial work-up was consistent with Covid pneumonia on chest imaging. Patient was found in significant distress with tachycardia over 100 and tachypneic at 46. He was started on supplemental oxygen and barely saturating 90% on 4 L. Blood gas 7.3 on 3 L oxygen. White count 7.2, D-dimer 1.76, creatinine 2. Covid positive. Subsequently hospitalist service was consulted in light of Covid pneumonia. Patient does not want to be transferred in the event he deteriorates and not as he wants intubation. He is agreeable noninvasive mechanical ventilation At the time of my evaluation patient is lethargic and distressed breathing rapidly. He was able to answer most of the questions and endorsed to history as above. He denied associated headache, photophobia but endorses to generalized body ache, weakness, lethargy. He denies diarrhea, dysuria. Denies productive sputum but endorses dry cough. He denies rash or joint swelling or pain 07/13-overnight on 55% FiO2. ABG 7.37/33/70 on noninvasive mechanical ventilation. Bilateral infiltrates on chest imaging. On remdesivir/ dexamethasone. Continue thrombosis prophylaxis. GFR 38 LFTs stable. Procalcitonin 0.15. Empiric antibiotics can be discontinued in 24 hours. 07/14 Unable to wean him below 55% this morning. Although he states he feels maybe a little better. Occasional cough. No other complaints. 07/15 agitated with some confusion last night. Resting comfortably this morning. Good oxygenation on 55%. Will wean down FiO2. Inflammatory markers improving 07/16 Patient pulled off his mask last night when the friend got on it to put him to 100% FiO2. He is weaned back down to 55%. Sats low 90s. Renal function improved Review of Systems difficult to obtain given the patient being on BiPAP seems to have some shortness of breath but no other complaints and minimal cough. Constitutional Vitals: Vital Signs Temp Pulse Resp BP Pulse Ox 99.0 F 105 H 29 H 153/75 91 07/16/20 07:07 07/16/20 07:01 07/16/20 07:08 07/16/20 06:01 07/16/20 07:08 Period Temp Pulse Resp BP Sys/Caro Pulse Ox Last 24 Hr 98 F-99.3 F 75-105 10-37 129-165/68-82 87-97 Intake and Output 07/15/20 07/16/20 07/16/20 21:59 05:59 13:59 Intake Total 120 120 Output Total 0 Balance 120 120 Weight 130.68 kg Intake & Output: Intake & Output 07/15/20 07/16/20 07/16/20 21:59 05:59 13:59 Intake Total 120 120 Output Total 0 Balance 120 120 Weight 130.68 kg Intake: Oral 120 120 Output: Void Amount 0 Other: Meal Dinner Percent of Meal Consumed 10% Stool Size Small Stool Color Green Stool Consistency Liquid # Voids 2 # of times incontinent of 1 Bowels Exam: General: sleeping but Awakens, No acute Distress, obese Eyes/N/T: EOMI, Head/Neck: neck supple, CV: RRR, No murmurs, Pulm: mild rhonchi/rales bilaterally and diminished, no wheezing Abd: soft, nontender, +BS x4 Ext: no clubbing/cyanosis, mild b/l LE edema Neuro: answers questions but difficult to hear given BiPAP, no focal deficits, moves all extremities, Skin: warm/dry OBJ DATA Labs CBC & Chem 7: 07/13/20 05:27 07/16/20 05:11 Labs: Abnormal Lab Results 07/16/20 07/15/20 07/15/20 05:11 05:25 05:25 D-Dimer Carbon Dioxide 20 L BUN 46 H Creatinine 1.6 H Glucose 118 H Uric Acid Phosphorus Ferritin 644.6 H AST ALT Lactate Dehydrogenase Total Creatine Kinase 366 H C-Reactive Protein 2.80 H Albumin Procalcitonin 07/15/20 07/14/20 07/14/20 05:25 05:27 05:27 D-Dimer Carbon Dioxide BUN 51 H Creatinine 1.7 H Glucose 109 H Uric Acid 8.5 H Phosphorus Ferritin 790.3 H AST 58 H ALT 54 H Lactate Dehydrogenase 600 H Total Creatine Kinase 437 H C-Reactive Protein 3.30 H Albumin 3.0 L Procalcitonin 07/14/20 07/14/20 07/14/20 05:27 05:27 05:27 D-Dimer 1.10 H Carbon Dioxide BUN 51 H Creatinine 1.8 H Glucose 139 H Uric Acid Phosphorus Ferritin AST 72 H ALT 67 H Lactate Dehydrogenase 563 H Total Creatine Kinase C-Reactive Protein Albumin Procalcitonin 0.12 H 07/13/20 07/13/20 07/13/20 05:27 05:27 05:27 D-Dimer 1.31 H Carbon Dioxide 20 L BUN 39 H Creatinine 1.8 H Glucose 137 H Uric Acid Phosphorus 4.6 H Ferritin 743.4 H AST 82 H ALT 61 H Lactate Dehydrogenase 499 H Total Creatine Kinase C-Reactive Protein Albumin Procalcitonin 0.15 H Meds: Medications Acetaminophen (Tylenol) 650 mg PO Q4-6HP PRN; Protocol PRN Reason: Per Pain Protocol/Fever > 101 Aspirin (Aspirin) 81 mg PO BID [facility] Last Admin: 07/16/20 07:33 Dose: 81 mg Documented by: Atorvastatin Calcium (Lipitor) 40 mg PO QDAY [facility] Last Admin: 07/16/20 07:34 Dose: 40 mg Documented by: Bisacodyl (Dulcolax) 10 mg SD Q2-3DAYS PRN PRN Reason: Constipation Cetirizine HCl (Zyrtec) 10 mg PO DAILYP PRN PRN Reason: Allergy Symptoms Dexamethasone (Decadron) 6 mg PO DAILY [facility] Last Admin: 07/16/20 07:33 Dose: 6 mg Documented by: Docusate Sodium (Colace) 100 mg PO BID [facility] Last Admin: 07/16/20 07:34 Dose: Not Given Documented by: Enoxaparin Sodium (Lovenox) 40 mg SQ BID [facility] Last Admin: 07/16/20 07:34 Dose: 40 mg Documented by: Famotidine (Pepcid) 20 mg PO BID [facility] Last Admin: 07/15/20 21:08 Dose: 20 mg Documented by: Hydralazine HCl (Apresoline) 10 mg IV Q4-6HP PRN PRN Reason: Hypertension Potassium Chloride 40 meq/ (Dextrose) 520 mls @ 130 mls/hr IV UD PRN PRN Reason: K+ = or < 3.5 Acetaminophen (Ofirmev) 650 mg in 65 mls @ 130 mls/hr IV Q6HP PRN; Protocol PRN Reason: Per Pain Protocol/Fever > 101 Last Infusion: 07/15/20 10:12 Dose: Infused Documented by: Magnesium Sulfate (Magnesium Sulfate) 2 gm in 50 mls @ 50 mls/hr IV UD PRN PRN Reason: MG = or < 1.7 REMDESIVIR 100 mg/ Sodium (Chloride) 250 mls @ 500 mls/hr IV DAILY@1100 [facility] Stop: 07/16/20 11:29 Last Infusion: 07/15/20 10:41 Dose: Infused Documented by: Ceftriaxone Sodium 2 gm/ (Dextrose) 50 mls @ 100 mls/hr IV DAILY [facility] Stop: 07/17/20 09:29 Last Admin: 07/16/20 07:33 Dose: 100 mls/hr Documented by: Iron Carb/Multivit/[place]/Folic Acid (Multivitamin W/Minerals) 1 tab PO DAILY [facility] Last Admin: 07/16/20 07:33 Dose: 1 tab Documented by: Lorazepam (Ativan) 0.5 mg IV Q6HP PRN PRN Reason: ANXIETY/SEDATION Last Admin: 07/15/20 02:28 Dose: 0.5 mg Documented by: Melatonin (Melatonin 3mg Tablet) 3 mg PO HSP PRN PRN Reason: Insomnia Metoprolol Succinate (Toprol Xl) 25 mg PO HS [facility] Last Admin: 07/15/20 21:09 Dose: 25 mg Documented by: Metoprolol Succinate (Toprol Xl) 50 mg PO DAILY [facility] Last Admin: 07/16/20 07:33 Dose: 50 mg Documented by: Metoprolol Tartrate (Lopressor) 5 mg IV Q5M PRN PRN Reason: Heart Rate > 140 bpm Nitroglycerin (Nitrostat) 0.4 mg SL Q15MIN PRN PRN Reason: Chest Pain Ondansetron HCl (Zofran Odt) 4 mg SL Q4-6HP PRN; Protocol PRN Reason: Nausea And Vomiting Ondansetron HCl (Zofran) 4 mg IV Q4-6HP PRN; Protocol PRN Reason: Nausea And Vomiting Polyethylene Glycol (Miralax) 17 gm PO DAILYP PRN PRN Reason: Constipation Potassium Chloride (Klor-Con) 40 meq PO DAILYP PRN PRN Reason: K+ < 3.5 Potassium/Phosphorus/Sodium (Neutra Phos) 2 packet PO DAILY PRN PRN Reason: PHOS <2.5 Promethazine HCl/Codeine (Promethazine-Codeine Syrup) 5 ml PO Q6HP PRN PRN Reason: Cough Pseudoephedrine HCl (Sudafed) 30 mg PO DAILYP PRN PRN Reason: ALLERGY SYMPTOMS Senna/Docusate Sodium (Senna Plus Tablet) 1 tab PO [facility] Last Admin: 07/15/20 21:09 Dose: Not Given Documented by: Sodium Chloride (Saline Flush) 10 ml IV Q8 [facility] Last Admin: 07/16/20 04:57 Dose: 10 ml Documented by: Tamsulosin HCl (Flomax) 0.4 mg PO QDAY [facility] Last Admin: 07/16/20 07:33 Dose: 0.4 mg Documented by: Tiotropium [place] (Spiriva) 18 mcg INH DAILY [facility] Last Admin: 07/15/20 10:11 Dose: 18 mcg Documented by: Zinc Sulfate (Zinc) 50 mg PO DAILY [facility] Last Admin: 07/16/20 07:33 Dose: 50 mg Documented by: Zolpidem Tartrate (Ambien) 10 mg PO HSP PRN PRN Reason: Insomnia Last Admin: 07/15/20 21:09 Dose: 10 mg Documented by: A/P Narrative A/P Narrative: A: *COVID-19 PNA: -improved coag/inflammatory markers. *Acute lung injury/acute hypoxic respiratory failure: 2/2 above -Profound hypoxemia with PO2/FiO2 less than 150, large AA gradient on ABG. Continue NIV to maintain oxygenation. -on Bipap with 50-55% fiO2, slow improvement -slow progress *Sepsis: improved *Acute encephalopathy: 2/2 critical care illness/acute viral syndrome -waxes/wanes, impulsive at times *Severe weakness: 2/2 acute viral syndrome. *Transaminitis, mild: 2/2 viral illness *Morbid obesity: *CKD III: *CAD: home aspirin/statin/BB *HTN: bb * Plan: -NIV/O2 support - weaning -self prone positioning -Remdesivir/dexamethasone -empiric Abx -cont home BB/statin/ASA -Continue directed therapies/nutrition support/early mobilization,pt/ot -ppx: lovenox full code Time Spent With Patient Time: Total time spent is greater than 50% in coordination of care (as do cumented) at patient's floor/unit and/or counseling patient: QUALITY VTE Deep Vein Thrombosis/Pulmonary Embolism Present on Admission: No
[2020-07-16] MEDS: FAMOTIDINE 20 MG TABLET PO SCH ×2 (07:47→20:19)
[2020-07-16] MEDS: TIOTROPIUM BROMIDE 18 MCG INHALANT INH SCH (08:08)
[2020-07-16] MEDS ORDERED: FUROSEMIDE 40 MG/4 ML VIAL IV ONE (10:36)
[2020-07-16] MEDS ORDERED: ALBUMIN HUMAN 12.5 GM/50 ML BAG IV ONE (10:36)
[2020-07-16] MEDS ORDERED: diphenhydrAMINE 25 MG CAPSULE PO PRN (10:37)
[2020-07-16] MEDS: REMDESIVIR 100 MG in 0.9 % SODIUM CHLORIDE 250 ML IV SCH (11:04)
[2020-07-16] MEDS: MELATONIN 3 MG TABLET PO SCH (20:19)
[2020-07-16] MEDS: METOPROLOL SUCCINATE 25 MG TAB.XL.24H PO SCH (20:20)
[2020-07-16] MEDS: SENNOSIDES/DOCUSATE SODIUM 1 TAB TABLET PO SCH (20:21)
[2020-07-16] MEDS ORDERED: OLANZapine 5 MG TABLET PO SCH (21:00)
[2020-07-16] MEDS: ACETAMINOPHEN 650 MG/65 ML BOTTLE IV PRN (23:41)
[2020-07-16] MEDS: PROMETHAZINE HCL/CODEINE 1 ML SYRUP PO PRN (23:46)
[2020-07-17] MEDS: 0.9 % SODIUM CHLORIDE 10 ML SYRINGE IV SCH ×3 (06:00→21:04)
--- NOTE | 2020-07-17 06:53 | XRay Report ---
INDICATION: f/u covid TECHNIQUE: AP portable semiupright chest x-ray COMPARISON: Previous chest x-rays dated 07/14/2020, 07/12/2020, 02/22/2019 FINDINGS:Previous median sternotomy. There are multiple surgical clips in the mediastinum and overlying the heart. Findings are consistent with previous coronary artery bypass procedure. Lungs:Worsening bilateral pulmonary parenchymal infiltrates. Patient apparently has a history of covid pneumonia. Pulmonary vascularity appears to be increasingly prominent than the infiltrates may be due to covid infection as well as increasing pulmonary edema. Clinical correlation and follow-up radiographs are recommended. Heart, vascular:There is cardiomegaly. Pulmonary vascularity is prominent, increased since previous examinations. Congestive heart failure is suspected Mediastinum, low:No interval change Pleura: Right pleural effusion is possible although not definite. Skeletal:Negative. IMPRESSION: 1. Cardiomegaly and prominent pulmonary vascularity 2. Increasing pulmonary parenchymal infiltrates. Combination of pneumonia and congestive heart failure is favored. Clinical correlation follow-up radiograph recommended Interpreted and Authenticated by: Shaq Gordon 07/17/20
--- NOTE | 2020-07-17 08:04 | Internal Med Progress Note ---
SUBJECTIVE Subjective Patient information: Note initiated : 07/17/20 at 8:03 am Service Date, if different from initiated Date: [] Patient: Guillermo Burnette 65 y/o M admitted on 07/12/20 for Shortness of breath. Chief Complaint: [] Interval history: History of present illness: Mr. Burnette is a 65 year old M who lives with his son and grandson presents to the ER following 2 weeks onset of increasing malaise weakness URI symptoms. He was diagnosed with Covid 2 weeks ago however over the last 4 days has gotten increasingly short of breath with exertion. Patient has not been able to perform his ADLs. In the last 24 hours he has become increasingly somnolent and lethargic unable to get out of bed. He endorses loss of appetite. Patient saturation went down to low 80s along with a fever. Subsequently was brought into the ER for evaluation. Initial work-up was consistent with Covid pneumonia on chest imaging. Patient was found in significant distress with tachycardia over 100 and tachypneic at 46. He was started on supplemental oxygen and barely saturating 90% on 4 L. Blood gas 7.3 on 3 L oxygen. White count 7.2, D-dimer 1.76, creatinine 2. Covid positive. Subsequently hospitalist service was consulted in light of Covid pneumonia. Patient does not want to be transferred in the event he deteriorates and not as he wants intubation. He is agreeable noninvasive mechanical ventilation At the time of my evaluation patient is lethargic and distressed breathing rapidly. He was able to answer most of the questions and endorsed to history as above. He denied associated headache, photophobia but endorses to generalized body ache, weakness, lethargy. He denies diarrhea, dysuria. Denies productive sputum but endorses dry cough. He denies rash or joint swelling or pain 07/13-overnight on 55% FiO2. ABG 7.37/33/70 on noninvasive mechanical ventilation. Bilateral infiltrates on chest imaging. On remdesivir/ dexamethasone. Continue thrombosis prophylaxis. GFR 38 LFTs stable. Procalcitonin 0.15. Empiric antibiotics can be discontinued in 24 hours. 07/14 Unable to wean him below 55% this morning. Although he states he feels maybe a little better. Occasional cough. No other complaints. 07/15 agitated with some confusion last night. Resting comfortably this morning. Good oxygenation on 55%. Will wean down FiO2. Inflammatory markers improving 07/16 Patient pulled off his mask last night when the friend got on it to put him to 100% FiO2. He is weaned back down to 55%. Sats low 90s. Renal function improved 07/17 Patient restless again last night. Is at 55% FiO2 this morning. Waxing and waning. Follow-up chest x-ray no improvement and possibly slightly worse, consider edema component. Review of Systems difficult to obtain given the patient being on BiPAP seems to have some shortness of breath but no other complaints and minimal cough. Constitutional Vitals: Vital Signs Temp Pulse Resp BP Pulse Ox 97.4 F 68 24 H 135/65 96 07/17/20 04:01 07/17/20 06:00 07/17/20 06:00 07/17/20 06:00 07/17/20 06:00 Period Temp Pulse Resp BP Sys/Caro Pulse Ox Last 24 Hr 97.4 F-98.4 F 64-88 16-32 128-161/61-87 87-96 Intake and Output 07/16/20 07/17/20 07/17/20 21:59 05:59 13:59 Intake Total 515 Output Total 1 1 Balance -1 514 Weight 130.408 kg Intake & Output: Intake & Output 07/16/20 07/17/20 07/17/20 21:59 05:59 13:59 Intake Total 515 Output Total 1 1 Balance -1 514 Weight 130.408 kg Intake: IV 65 Oral 450 Output: Void Amount 0 # of times incontinent of urine 1 1 Other: Meal Dinner Percent of Meal Consumed Refused Urine Appearance Clear Urine Color Pale Stool Size Small Stool Color Green Stool Consistency Liquid # Voids 1 Exam: General: sleeping but Awakens, No acute Distress, obese Eyes/N/T: EOMI, Head/Neck: neck supple, CV: RRR, No murmurs, Pulm: mild rhonchi/rales bilaterally and diminished, no wheezing Abd: soft, nontender, +BS x4 Ext: no clubbing/cyanosis, mild b/l LE edema Neuro: answers questions but difficult to hear given BiPAP, no focal deficits, moves all extremities, Skin: warm/dry OBJ DATA Labs CBC & Chem 7: 07/13/20 05:27 07/17/20 07:29 Labs: Abnormal Lab Results 07/16/20 07/15/20 07/15/20 05:11 05:25 05:25 D-Dimer Carbon Dioxide 20 L BUN 46 H Creatinine 1.6 H Glucose 118 H Uric Acid Ferritin 644.6 H AST ALT Lactate Dehydrogenase Total Creatine Kinase 366 H C-Reactive Protein 2.80 H Albumin 07/15/20 07/14/20 05:25 05:27 D-Dimer 1.10 H Carbon Dioxide BUN 51 H Creatinine 1.7 H Glucose 109 H Uric Acid 8.5 H Ferritin AST 58 H ALT 54 H Lactate Dehydrogenase 600 H Total Creatine Kinase C-Reactive Protein Albumin 3.0 L Meds: Medications Acetaminophen (Tylenol) 650 mg PO Q4-6HP PRN; Protocol PRN Reason: Per Pain Protocol/Fever > 101 Aspirin (Aspirin) 81 mg PO BID [facility] Last Admin: 07/16/20 20:19 Dose: 81 mg Documented by: Atorvastatin Calcium (Lipitor) 40 mg PO QDAY [facility] Last Admin: 07/16/20 07:34 Dose: 40 mg Documented by: Bisacodyl (Dulcolax) 10 mg CO Q2-3DAYS PRN PRN Reason: Constipation Cetirizine HCl (Zyrtec) 10 mg PO DAILYP PRN PRN Reason: Allergy Symptoms Dexamethasone (Decadron) 6 mg PO DAILY [facility] Last Admin: 07/16/20 07:33 Dose: 6 mg Documented by: Diphenhydramine HCl (Benadryl) 50 mg PO HSP PRN PRN Reason: Insomnia Last Admin: 07/16/20 20:19 Dose: 50 mg Documented by: Docusate Sodium (Colace) 100 mg PO BID [facility] Last Admin: 07/16/20 20:20 Dose: Not Given Documented by: Enoxaparin Sodium (Lovenox) 40 mg SQ BID [facility] Last Admin: 07/16/20 20:20 Dose: 40 mg Documented by: Famotidine (Pepcid) 20 mg PO BID [facility] Last Admin: 07/16/20 20:19 Dose: 20 mg Documented by: Hydralazine HCl (Apresoline) 10 mg IV Q4-6HP PRN PRN Reason: Hypertension Potassium Chloride 40 meq/ (Dextrose) 520 mls @ 130 mls/hr IV UD PRN PRN Reason: K+ = or < 3.5 Acetaminophen (Ofirmev) 650 mg in 65 mls @ 130 mls/hr IV Q6HP PRN; Protocol PRN Reason: Per Pain Protocol/Fever > 101 Last Infusion: 07/17/20 00:25 Dose: Infused Documented by: Magnesium Sulfate (Magnesium Sulfate) 2 gm in 50 mls @ 50 mls/hr IV UD PRN PRN Reason: MG = or < 1.7 Ceftriaxone Sodium 2 gm/ (Dextrose) 50 mls @ 100 mls/hr IV DAILY [facility] Stop: 07/17/20 09:29 Last Infusion: 07/16/20 08:05 Dose: Infused Documented by: REMDESIVIR 100 mg/ Sodium (Chloride) 250 mls @ 500 mls/hr IV DAILY@1000 [facility] Stop: 07/21/20 10:29 Iron Carb/Multivit/[place]/Folic Acid (Multivitamin W/Minerals) 1 tab PO DAILY [facility] Last Admin: 07/16/20 07:33 Dose: 1 tab Documented by: Lorazepam (Ativan) 0.5 mg IV Q6HP PRN PRN Reason: ANXIETY/SEDATION Last Admin: 07/15/20 02:28 Dose: 0.5 mg Documented by: Melatonin (Melatonin 3mg Tablet) 3 mg PO QHS [facility] Last Admin: 07/16/20 20:19 Dose: 3 mg Documented by: Metoprolol Succinate (Toprol Xl) 25 mg PO HS [facility] Last Admin: 07/16/20 20:20 Dose: 25 mg Documented by: Metoprolol Succinate (Toprol Xl) 50 mg PO DAILY [facility] Last Admin: 07/16/20 07:33 Dose: 50 mg Documented by: Metoprolol Tartrate (Lopressor) 5 mg IV Q5M PRN PRN Reason: Heart Rate > 140 bpm Nitroglycerin (Nitrostat) 0.4 mg SL Q15MIN PRN PRN Reason: Chest Pain Olanzapine (Zyprexa) 5 mg PO [facility] Stop: 07/17/20 21:01 Last Admin: 07/16/20 20:19 Dose: 5 mg Documented by: Ondansetron HCl (Zofran Odt) 4 mg SL Q4-6HP PRN; Protocol PRN Reason: Nausea And Vomiting Ondansetron HCl (Zofran) 4 mg IV Q4-6HP PRN; Protocol PRN Reason: Nausea And Vomiting Polyethylene Glycol (Miralax) 17 gm PO DAILYP PRN PRN Reason: Constipation Potassium Chloride (Klor-Con) 40 meq PO DAILYP PRN PRN Reason: K+ < 3.5 Potassium/Phosphorus/Sodium (Neutra Phos) 2 packet PO DAILY PRN PRN Reason: PHOS <2.5 Promethazine HCl/Codeine (Promethazine-Codeine Syrup) 5 ml PO Q6HP PRN PRN Reason: Cough Last Admin: 07/16/20 23:46 Dose: 5 ml Documented by: Pseudoephedrine HCl (Sudafed) 30 mg PO DAILYP PRN PRN Reason: ALLERGY SYMPTOMS Senna/Docusate Sodium (Senna Plus Tablet) 1 tab PO HS [facility] Last Admin: 07/16/20 20:21 Dose: Not Given Documented by: Sodium Chloride (Saline Flush) 10 ml IV Q8 [facility] Last Admin: 07/17/20 06:00 Dose: 10 ml Documented by: Tamsulosin HCl (Flomax) 0.4 mg PO QDAY [facility] Last Admin: 07/16/20 07:33 Dose: 0.4 mg Documented by: Tiotropium [place] (Spiriva) 18 mcg INH DAILY [facility] Last Admin: 07/16/20 08:08 Dose: 18 mcg Documented by: Zinc Sulfate (Zinc) 50 mg PO DAILY [facility] Last Admin: 07/16/20 07:33 Dose: 50 mg Documented by: A/P Narrative A/P Narrative: A: *COVID-19 PNA: -improved coag/inflammatory markers. *Acute lung injury/acute hypoxic respiratory failure: 2/2 above -Profound hypoxemia with PO2/FiO2 less than 150, large AA gradient on ABG. Continue NIV to maintain oxygenation. -on Bipap on 55% fiO2, waxes/wanes -slow progress, waxes/wanes *Sepsis: improved *Acute encephalopathy: 2/2 critical care illness/acute viral syndrome -waxes/wanes, impulsive at times and worse at night *Severe weakness: 2/2 acute viral syndrome. *Transaminitis, mild: 2/2 viral illness *Morbid obesity: *CKD III: *CAD: home aspirin/statin/BB *HTN: bb * Plan: -NIV/O2 support - weaning -self prone positioning -Remdesivir/dexamethasone -empiric Abx d/c -cont home BB/statin/ASA -Continue directed therapies/nutrition support/early mobilization,pt/ot -ppx: lovenox full code Time Spent With Patient Time: Total time spent is greater than 50% in coordination of care (as documented) at patient's floor/unit and/or counseling patient: QUALITY VTE Deep Vein Thrombosis/Pulmonary Embolism Present on Admission: No
[2020-07-17 08:47] LABS: Blood Urea Nitrogen 54 mg/dL (8-23); Calcium 8.8 mg/dL (8.6-10.4); Carbon Dioxide 20 mmol/L (22-30); Chloride 110 mmol/L (96-108); Glomerular Filtration Rate 41; Glucose 143 mg/dL (70-105)
[2020-07-17] MEDS: DOCUSATE SODIUM 100 MG CAPSULE PO SCH ×2 (09:11→21:04)
[2020-07-17] MEDS ORDERED: ALBUMIN HUMAN 12.5 GM/50 ML BAG IV ONE (09:26)
[2020-07-17] MEDS ORDERED: FUROSEMIDE 40 MG/4 ML VIAL IV ONE (09:26)
[2020-07-17] MEDS: cefTRIAXone 2 GM in DEXTROSE 5% IN WATER 50 ML IV SCH (10:16)
[2020-07-17] MEDS: REMDESIVIR 100 MG in 0.9 % SODIUM CHLORIDE 250 ML IV SCH (10:55)
[2020-07-17] MEDS: METOPROLOL SUCCINATE 50 MG TAB.XL.24H PO SCH (10:57)
[2020-07-17] MEDS: PROMETHAZINE HCL/CODEINE 1 ML SYRUP PO PRN (10:57)
[2020-07-17] MEDS: QUEtiapine 25 MG TABLET PO SCH ×2 (10:57→21:03)
[2020-07-17] MEDS: ENOXAPARIN 40 MG/0.4 ML SYRINGE SQ SCH ×2 (10:57→21:03)
[2020-07-17] MEDS: ATORVASTATIN 40 MG TABLET PO SCH (10:58)
[2020-07-17] MEDS: DEXAMETHASONE 4 MG TABLET PO SCH (10:58)
[2020-07-17] MEDS: FAMOTIDINE 20 MG TABLET PO SCH ×2 (10:59→21:02)
[2020-07-17] MEDS: MULTIVIT,THER IRON,CA,FA & MIN 1 TABLET PO SCH (10:59)
[2020-07-17] MEDS: TAMSULOSIN 0.4 MG CAPSULE PO SCH (10:59)
[2020-07-17] MEDS: ACETAMINOPHEN 325 MG TABLET PO PRN (10:59)
[2020-07-17] MEDS: ZINC SULFATE 50 MG CAPSULE PO SCH (10:59)
[2020-07-17] MEDS: ASPIRIN 81 MG TAB.CHEW PO SCH ×2 (10:59→21:03)
[2020-07-17] MEDS: TIOTROPIUM BROMIDE 18 MCG INHALANT INH SCH (11:00)
[2020-07-17] MEDS: MELATONIN 3 MG TABLET PO SCH (21:03)
[2020-07-17] MEDS: METOPROLOL SUCCINATE 25 MG TAB.XL.24H PO SCH (21:03)
[2020-07-17] MEDS: SENNOSIDES/DOCUSATE SODIUM 1 TAB TABLET PO SCH (21:04)
[2020-07-18] MEDS: 0.9 % SODIUM CHLORIDE 10 ML SYRINGE IV SCH ×3 (05:44→20:56)
[2020-07-18 07:37] LABS: ALT/SGPT 46 U/L (<40); AST/SGOT 58 U/L (<40); Albumin 3.2 gm/dL (3.2-5.2); Albumin/Globulin Ratio 0.9 (1.0-2.3); Alkaline Phosphatase 71 U/L (39-117); Bilirubin,Direct < 0.2 mg/dL (<0.3); Bilirubin,Total 0.6 mg/dL (0.1-1.0); Blood Urea Nitrogen 55 mg/dL (8-23); Calcium 8.6 mg/dL (8.6-10.4); Carbon Dioxide 22 mmol/L (22-30); Chloride 107 mmol/L (96-108); Globulin 3.7 gm/dL (2.2-3.7); Glomerular Filtration Rate 44; Glucose 150 mg/dL (70-105); Lactate Dehydrogenase 767 U/L (135-225); Phosphorous 3.8 mg/dL (2.5-4.5); Triglycerides 57 mg/dL (<150); Uric Acid 9.3 mg/dL (2.5-8.0)
--- NOTE | 2020-07-18 07:53 | Internal Med Progress Note ---
SUBJECTIVE Subjective Patient information: Note initiated : 07/18/20 at 7:49 am Service Date, if different from initiated Date: [] Patient: Guillermo Burnette 65 y/o M admitted on 07/12/20 for Shortness of breath. Chief Complaint: [] Interval history: History of present illness: Mr. Burnette is a 65 year old M who lives with his son and grandson presents to the ER following 2 weeks onset of increasing malaise weakness URI symptoms. He was diagnosed with Covid 2 weeks ago however over the last 4 days has gotten increasingly short of breath with exertion. Patient has not been able to perform his ADLs. In the last 24 hours he has become increasingly somnolent and lethargic unable to get out of bed. He endorses loss of appetite. Patient saturation went down to low 80s along with a fever. Subsequently was brought into the ER for evaluation. Initial work-up was consistent with Covid pneumonia on chest imaging. Patient was found in significant distress with tachycardia over 100 and tachypneic at 46. He was started on supplemental oxygen and barely saturating 90% on 4 L. Blood gas 7.3 on 3 L oxygen. White count 7.2, D-dimer 1.76, creatinine 2. Covid positive. Subsequently hospitalist service was consulted in light of Covid pneumonia. Patient does not want to be transferred in the event he deteriorates and not as he wants intubation. He is agreeable noninvasive mechanical ventilation At the time of my evaluation patient is lethargic and distressed breathing rapidly. He was able to answer most of the questions and endorsed to history as above. He denied associated headache, photophobia but endorses to generalized body ache, weakness, lethargy. He denies diarrhea, dysuria. Denies productive sputum but endorses dry cough. He denies rash or joint swelling or pain 07/13-overnight on 55% FiO2. ABG 7.37/33/70 on noninvasive mechanical ventilation. Bilateral infiltrates on chest imaging. On remdesivir/ dexamethasone. Continue thrombosis prophylaxis. GFR 38 LFTs stable. Procalcitonin 0.15. Empiric antibiotics can be discontinued in 24 hours. 07/14 Unable to wean him below 55% this morning. Although he states he feels maybe a little better. Occasional cough. No other complaints. 07/15 agitated with some confusion last night. Resting comfortably this morning. Good oxygenation on 55%. Will wean down FiO2. Inflammatory markers improving 07/16 Patient pulled off his mask last night when the friend got on it to put him to 100% FiO2. He is weaned back down to 55%. Sats low 90s. Renal function improved 07/17 Patient restless again last night. Is at 55% FiO2 this morning. Waxing and waning. Follow-up chest x-ray no improvement and possibly slightly worse, consider edema component. There seems to have been confusion with CODE STATUS. Patient had originally told the ER physician and the hospitalist I did not want to be intubated. But then shortly thereafter on the floor with the nurse he signed documentation saying okay to do that. His son, Dieudonne, was quite surprised by that because he always understood that his father was a DO NOT RESUSCITATE. His father expressed to his sons in the past that he would not want to be intubated such a circumstance. The nurse did readdress code status with the patient who said that he would rather staff talk with his family to come up with a consensus. I called and discussed with Dieudonne the son who has also been discussing it with his older brother Parmjit. And they are of the consensus that their father would not want to be intubated especially in a situation such as this where he is deteriorating from COVID-19 and will more than likely require intubation for a prolonged period of time without a guarantee of a full recovery. Explained to Dieudonne of the patient has been deteriorating in the past 24 hours. He is currently requiring 70% FiO2. Respiratory therapist has adjusted BiPAP settings and increased PEEP. In discussion with Dieudonne it has been decided to continue current therapy and to see if the patient can start to improve again; to not intubate and transfer to higher care facility. If he does not improve then we would need to consider comfort care focus if the patient did not have a event prior to that time. 07/18 FIO2 80% o/n. No overnight issues overnight. Alert and oriented with occasional mild confusion. Declining. Had a discussion with family yesterday. Continue monitoring other day and see how he does. If he continues to decline or show no improvement will need to discuss comfort measures. Patient does state he feels little better today. Hopefully we can start coming back down on the oxygen. Review of Systems difficult to obtain given the patient being on BiPAP seems to have some shortness of breath but no other complaints and minimal cough. Constitutional Vitals: Vital Signs Temp Pulse Resp BP Pulse Ox 97.4 F 85 25 H 149/76 91 07/18/20 05:48 07/18/20 07:34 07/18/20 07:34 07/18/20 06:01 07/18/20 07:34 Period Temp Pulse Resp BP Sys/Caro Pulse Ox Last 24 Hr 97.2 F-98.8 F 68-115 14-35 122-163/62-85 75-98 Intake and Output 07/17/20 07/18/20 07/18/20 21:59 05:59 13:59 Intake Total 440 540 Output Total 1 Balance 439 540 Weight 130.907 kg Intake & Output: Intake & Output 07/17/20 07/18/20 07/18/20 21:59 05:59 13:59 Intake Total 440 540 Output Total 1 Balance 439 540 Weight 130.907 kg Intake: Oral 440 540 Output: # of times incontinent of urine 1 Other: # Voids 1 # of times incontinent of 1 Bowels Exam: General: Awake, No acute Distress, obese Eyes/N/T: EOMI, Head/Neck: neck supple, CV: RRR, No murmurs, Pulm: mild rhonchi/rales bilaterally and diminished but improved., no wheezing Abd: soft, nontender, +BS x4 Ext: no clubbing/cyanosis, mild b/l LE edema Neuro: answers questions but difficult to hear given BiPAP, no focal deficits, moves all extremities, Skin: warm/dry OBJ DATA Labs CBC & Chem 7: 07/13/20 05:27 07/18/20 05:35 Labs: Abnormal Lab Results 07/18/20 07/17/20 07/17/20 05:35 07:29 07:29 Chloride 110 H Carbon Dioxide 20 L BUN 55 H 54 H Creatinine 1.6 H 1.7 H Glucose 150 H 143 H Uric Acid 9.3 H Magnesium 3.0 H AST 58 H ALT 46 H Lactate Dehydrogenase 767 H NT-Pro-B Natriuret Pep 125.3 H Albumin/Globulin Ratio 0.9 L 07/16/20 05:11 Chloride Carbon Dioxide 20 L BUN 46 H Creatinine 1.6 H Glucose 118 H Uric Acid Magnesium AST ALT Lactate Dehydrogenase NT-Pro-B Natriuret Pep Albumin/Globulin Ratio Meds: Medications Acetaminophen (Tylenol) 650 mg PO Q4-6HP PRN; Protocol PRN Reason: Per Pain Protocol/Fever > 101 Last Admin: 07/17/20 10:59 Dose: 650 mg Documented by: Aspirin (Aspirin) 81 mg PO BID [facility] Last Admin: 07/17/20 21:03 Dose: 81 mg Documented by: Atorvastatin Calcium (Lipitor) 40 mg PO QDAY [facility] Last Admin: 07/17/20 10:58 Dose: 40 mg Documented by: Bisacodyl (Dulcolax) 10 mg GA Q2-3DAYS PRN PRN Reason: Constipation Cetirizine HCl (Zyrtec) 10 mg PO DAILYP PRN PRN Reason: Allergy Symptoms Dexamethasone (Decadron) 6 mg PO DAILY [facility] Last Admin: 07/17/20 10:58 Dose: 6 mg Documented by: Diphenhydramine HCl (Benadryl) 50 mg PO HSP PRN PRN Reason: Insomnia Last Admin: 07/16/20 20:19 Dose: 50 mg Documented by: Docusate Sodium (Colace) 100 mg PO BID [facility] Last Admin: 07/17/20 21:04 Dose: Not Given Documented by: Enoxaparin Sodium (Lovenox) 40 mg SQ BID [facility] Last Admin: 07/17/20 21:03 Dose: 40 mg Documented by: Famotidine (Pepcid) 20 mg PO BID [facility] Last Admin: 07/17/20 21:02 Dose: 20 mg Documented by: Hydralazine HCl (Apresoline) 10 mg IV Q4-6HP PRN PRN Reason: Hypertension Potassium Chloride 40 meq/ (Dextrose) 520 mls @ 130 mls/hr IV UD PRN PRN Reason: K+ = or < 3.5 Acetaminophen (Ofirmev) 650 mg in 65 mls @ 130 mls/hr IV Q6HP PRN; Protocol PRN Reason: Per Pain Protocol/Fever > 101 Last Infusion: 07/17/20 00:25 Dose: Infused Documented by: Magnesium Sulfate (Magnesium Sulfate) 2 gm in 50 mls @ 50 mls/hr IV UD PRN PRN Reason: MG = or < 1.7 REMDESIVIR 100 mg/ Sodium (Chloride) 250 mls @ 500 mls/hr IV DAILY@1000 [facility] Stop: 07/21/20 10:29 Last Infusion: 07/17/20 11:25 Dose: Infused Documented by: Iron Carb/Multivit/[place]/Folic Acid (Multivitamin W/Minerals) 1 tab PO DAILY [facility] Last Admin: 07/17/20 10:59 Dose: 1 tab Documented by: Lorazepam (Ativan) 0.5 mg IV Q6HP PRN PRN Reason: ANXIETY/SEDATION Last Admin: 07/15/20 02:28 Dose: 0.5 mg Documented by: Melatonin (Melatonin 3mg Tablet) 3 mg PO QHS [facility] Last Admin: 07/17/20 21:03 Dose: 3 mg Documented by: Metoprolol Succinate (Toprol Xl) 25 mg PO [facility] Last Admin: 07/17/20 21:03 Dose: 25 mg Documented by: Metoprolol Succinate (Toprol Xl) 50 mg PO DAILY [facility] Last Admin: 07/17/20 10:57 Dose: 50 mg Documented by: Metoprolol Tartrate (Lopressor) 5 mg IV Q5M PRN PRN Reason: Heart Rate > 140 bpm Nitroglycerin (Nitrostat) 0.4 mg SL Q15MIN PRN PRN Reason: Chest Pain Ondansetron HCl (Zofran Odt) 4 mg SL Q4-6HP PRN; Protocol PRN Reason: Nausea And Vomiting Ondansetron HCl (Zofran) 4 mg IV Q4-6HP PRN; Protocol PRN Reason: Nausea And Vomiting Polyethylene Glycol (Miralax) 17 gm PO DAILYP PRN PRN Reason: Constipation Potassium Chloride (Klor-Con) 40 meq PO DAILYP PRN PRN Reason: K+ < 3.5 Potassium/Phosphorus/Sodium (Neutra Phos) 2 packet PO DAILY PRN PRN Reason: PHOS <2.5 Promethazine HCl/Codeine (Promethazine-Codeine Syrup) 5 ml PO Q6HP PRN PRN Reason: Cough Last Admin: 07/17/20 10:57 Dose: 5 ml Documented by: Pseudoephedrine HCl (Sudafed) 30 mg PO DAILYP PRN PRN Reason: ALLERGY SYMPTOMS Senna/Docusate Sodium (Senna Plus Tablet) 1 tab PO [facility] Last Admin: 07/17/20 21:04 Dose: Not Given Documented by: Sodium Chloride (Saline Flush) 10 ml IV Q8 [facility] Last Admin: 07/18/20 05:44 Dose: 10 ml Documented by: Tamsulosin HCl (Flomax) 0.4 mg PO QDAY [facility] Last Admin: 07/17/20 10:59 Dose: 0.4 mg Documented by: Tiotropium [place] (Spiriva) 18 mcg INH DAILY [facility] Last Admin: 07/17/20 11:00 Dose: 18 mcg Documented by: Zinc Sulfate (Zinc) 50 mg PO DAILY [facility] Last Admin: 07/17/20 10:59 Dose: 50 mg Documented by: A/P Narrative A/P Narrative: A: *COVID-19 PNA: Deteriorating -improved coag/inflammatory markers. *Acute lung injury/acute hypoxic respiratory failure: 2/2 above -Profound hypoxemia with PO2/FiO2 less than 150, large AA gradient on ABG. Continue NIV to maintain oxygenation. -on Bipap now up to 80% fiO2 since last evening *Sepsis: improved *Acute encephalopathy: 2/2 critical care illness/acute viral syndrome -waxes/wanes, impulsive at times and worse at night *Severe weakness: 2/2 acute viral syndrome. *Transaminitis, mild: 2/2 viral illness *Morbid obesity: *CKD III: *CAD: home aspirin/statin/BB *HTN: bb *goals of care: continue current therapy and if worsens or does not improve will consider comfort care. Do not intubate or transfer to higher care facility at this time. Plan: -prognosis poor, declining -self prone positioning -Remdesivir/dexamethasone -empiric Abx d/c -cont home BB/statin/ASA -Continue directed therapies/nutrition support/early mobilization,pt/ot -in discussion with Son (Dieudonne, who has been in discussion with older brother Parmjit), continue bipap support but do not intubate or transfer to higher care facility. The patient requested family to make decisions per nurse (07/17); additionally, the pt stated on admit no intubate/transfer. -ppx: lovenox DNR/DNI Time Spent With Patient Time: Total time spent is greater than 50% in coordination of care (as documented) at patient's floor/unit and/or counseling patient: QUALITY VTE Deep Vein Thrombosis/Pulmonary Embolism Present on Admission: No
[2020-07-18] MEDS: DEXAMETHASONE 4 MG TABLET PO SCH (08:44)
[2020-07-18] MEDS: MULTIVIT,THER IRON,CA,FA & MIN 1 TABLET PO SCH (08:44)
[2020-07-18] MEDS: METOPROLOL SUCCINATE 50 MG TAB.XL.24H PO SCH (08:44)
[2020-07-18] MEDS: ZINC SULFATE 50 MG CAPSULE PO SCH (08:44)
[2020-07-18] MEDS: ATORVASTATIN 40 MG TABLET PO SCH (08:44)
[2020-07-18] MEDS: TAMSULOSIN 0.4 MG CAPSULE PO SCH (08:44)
[2020-07-18] MEDS: ASPIRIN 81 MG TAB.CHEW PO SCH ×2 (08:44→20:55)
[2020-07-18] MEDS: ACETAMINOPHEN 325 MG TABLET PO PRN (08:44)
[2020-07-18] MEDS: ENOXAPARIN 40 MG/0.4 ML SYRINGE SQ SCH ×2 (08:45→20:56)
[2020-07-18] MEDS: TIOTROPIUM BROMIDE 18 MCG INHALANT INH SCH (08:45)
[2020-07-18] MEDS: DOCUSATE SODIUM 100 MG CAPSULE PO SCH ×2 (08:45→20:55)
[2020-07-18] MEDS: PROMETHAZINE HCL/CODEINE 1 ML SYRUP PO PRN (08:45)
[2020-07-18] MEDS: FAMOTIDINE 20 MG TABLET PO SCH ×2 (08:50→20:56)
[2020-07-18] MEDS: REMDESIVIR 100 MG in 0.9 % SODIUM CHLORIDE 250 ML IV SCH (11:00)
[2020-07-18] MEDS: SENNOSIDES/DOCUSATE SODIUM 1 TAB TABLET PO SCH (20:55)
[2020-07-18] MEDS: METOPROLOL SUCCINATE 25 MG TAB.XL.24H PO SCH (20:56)
[2020-07-18] MEDS: MELATONIN 3 MG TABLET PO SCH (20:56)
[2020-07-19] MEDS: 0.9 % SODIUM CHLORIDE 10 ML SYRINGE IV SCH ×5 (05:45→21:37)
[2020-07-19] MEDS: LORazepam 2 MG/ML VIAL IV PRN (07:33)
[2020-07-19 08:11] LABS: ALT/SGPT 46 U/L (<40); AST/SGOT 53 U/L (<40); Albumin 3.1 gm/dL (3.2-5.2); Albumin/Globulin Ratio 0.8 (1.0-2.3); Alkaline Phosphatase 76 U/L (39-117); Bilirubin,Direct 0.2 mg/dL (<0.3); Bilirubin,Total 0.7 mg/dL (0.1-1.0); Blood Urea Nitrogen 51 mg/dL (8-23); Calcium 8.9 mg/dL (8.6-10.4); Carbon Dioxide 23 mmol/L (22-30); Chloride 109 mmol/L (96-108); Globulin 3.7 gm/dL (2.2-3.7); Glomerular Filtration Rate 44; Glucose 130 mg/dL (70-105); Lactate Dehydrogenase 706 U/L (135-225); Phosphorous 3.6 mg/dL (2.5-4.5); Triglycerides 55 mg/dL (<150); Uric Acid 8.2 mg/dL (2.5-8.0)
[2020-07-19] MEDS ORDERED: DEXMEDETOMIDINE 400 MCG in PREMIX 1 BAG IV SCH (08:15)
--- NOTE | 2020-07-19 08:18 | Internal Med Progress Note ---
SUBJECTIVE Subjective Patient information: Note initiated : 07/19/20 at 8:15 am Service Date, if different from initiated Date: [] Patient: Guillermo Burnette 65 y/o M admitted on 07/12/20 for Shortness of breath. Chief Complaint: [] Interval history: History of present illness: Mr. Burnette is a 65 year old M who lives with his son and grandson presents to the ER following 2 weeks onset of increasing malaise weakness URI symptoms. He was diagnosed with Covid 2 weeks ago however over the last 4 days has gotten increasingly short of breath with exertion. Patient has not been able to perform his ADLs. In the last 24 hours he has become increasingly somnolent and lethargic unable to get out of bed. He endorses loss of appetite. Patient saturation went down to low 80s along with a fever. Subsequently was brought into the ER for evaluation. Initial work-up was consistent with Covid pneumonia on chest imaging. Patient was found in significant distress with tachycardia over 100 and tachypneic at 46. He was started on supplemental oxygen and barely saturating 90% on 4 L. Blood gas 7.3 on 3 L oxygen. White count 7.2, D-dimer 1.76, creatinine 2. Covid positive. Subsequently hospitalist service was consulted in light of Covid pneumonia. Patient does not want to be transferred in the event he deteriorates and not as he wants intubation. He is agreeable noninvasive mechanical ventilation At the time of my evaluation patient is lethargic and distressed breathing rapidly. He was able to answer most of the questions and endorsed to history as above. He denied associated headache, photophobia but endorses to generalized body ache, weakness, lethargy. He denies diarrhea, dysuria. Denies productive sputum but endorses dry cough. He denies rash or joint swelling or pain 07/13-overnight on 55% FiO2. ABG 7.37/33/70 on noninvasive mechanical ventilation. Bilateral infiltrates on chest imaging. On remdesivir/ dexamethasone. Continue thrombosis prophylaxis. GFR 38 LFTs stable. Procalcitonin 0.15. Empiric antibiotics can be discontinued in 24 hours. 07/14 Unable to wean him below 55% this morning. Although he states he feels maybe a little better. Occasional cough. No other complaints. 07/15 agitated with some confusion last night. Resting comfortably this morning. Good oxygenation on 55%. Will wean down FiO2. Inflammatory markers improving 07/16 Patient pulled off his mask last night when the friend got on it to put him to 100% FiO2. He is weaned back down to 55%. Sats low 90s. Renal function improved 07/17 Patient restless again last night. Is at 55% FiO2 this morning. Waxing and waning. Follow-up chest x-ray no improvement and possibly slightly worse, consider edema component. There seems to have been confusion with CODE STATUS. Patient had originally told the ER physician and the hospitalist I did not want to be intubated. But then shortly thereafter on the floor with the nurse he signed documentation saying okay to do that. His son, Dieudonne, was quite surprised by that because he always understood that his father was a DO NOT RESUSCITATE. His father expressed to his sons in the past that he would not want to be intubated such a circumstance. The nurse did readdress code status with the patient who said that he would rather staff talk with his family to come up with a consensus. I called and discussed with Dieudonne the son who has also been discussing it with his older brother Parmjit. And they are of the consensus that their father would not want to be intubated especially in a situation such as this where he is deteriorating from COVID-19 and will more than likely require intubation for a prolonged period of time without a guarantee of a full recovery. Explained to Dieudonne of the patient has been deteriorating in the past 24 hours. He is currently requiring 70% FiO2. Respiratory therapist has adjusted BiPAP settings and increased PEEP. In discussion with Dieudonne it has been decided to continue current therapy and to see if the patient can start to improve again; to not intubate and transfer to higher care facility. If he does not improve then we would need to consider comfort care focus if the patient did not have a event prior to that time. 07/18 FIO2 80% o/n. No overnight issues overnight. Alert and oriented with occasional mild confusion. Declining. Had a discussion with family yesterday. Continue monitoring other day and see how he does. If he continues to decline or show no improvement will need to discuss comfort measures. Patient does state he feels little better today. Hopefully we can start coming back down on the oxygen. 07/19-patient clinically deteriorating. Worsening chest infiltrates and hypoxia requiring 80% FiO2 on noninvasive ventilation. ABG PO2 52 on 80% FiO2. Start Precedex for sedation to continue oxygenation on noninvasive ventilation. Remains DNR. Very high risk mortality. Will update son on patient's critical state. Creatinine 1.6. [place] 2 score over 20 Constitutional Vitals: Vital Signs Temp Pulse Resp BP Pulse Ox 97.6 F 92 H 27 H 146/70 89 L 07/19/20 02:00 07/19/20 07:35 07/19/20 07:35 07/19/20 06:01 07/19/20 07:35 Period Temp Pulse Resp BP Sys/Caro Pulse Ox Last 24 Hr 97.2 F-98.2 F 69-95 14-35 137-183/69-89 67-97 Intake and Output 07/18/20 07/19/20 07/19/20 21:59 05:59 13:59 Intake Total 1194 750 Output Total 200 300 Balance 994 450 Weight 128.911 kg Alert labored breathing on noninvasive ventilation on 80% FiO2 Anxious No lymphedema No telemetry events Intake & Output: Intake & Output 07/18/20 07/19/20 07/19/20 21:59 05:59 13:59 Intake Total 1194 750 Output Total 200 300 Balance 994 450 Weight 128.911 kg Intake: Nourishment/Supplement quantity 474 (ml) Oral 720 750 Output: Void Amount 200 300 # of times incontinent of urine 0 Other: Meal Nourishment/Supplement Percent of Meal Consumed 100% Feeding Ability Needs Supervision Nourishment/Supplement name Breeze Urine Appearance Clear Straight Clear Urine Color Dark Yellow Straight Dark [place] Dark [place] OBJ DATA Labs CBC & Chem 7: 07/13/20 05:27 07/19/20 05:00 Labs: Abnormal Lab Results 07/19/20 07/18/20 07/17/20 05:00 05:35 07:29 Chloride 109 H Carbon Dioxide BUN 51 H 55 H Creatinine 1.6 H 1.6 H Glucose 130 H 150 H Uric Acid 8.2 H 9.3 H Magnesium 2.9 H 3.0 H AST 53 H 58 H ALT 46 H 46 H Lactate Dehydrogenase 706 H 767 H NT-Pro-B Natriuret Pep 125.3 H Albumin 3.1 L Albumin/Globulin Ratio 0.8 L 0.9 L 07/17/20 07:29 Chloride 110 H Carbon Dioxide 20 L BUN 54 H Creatinine 1.7 H Glucose 143 H Uric Acid Magnesium AST ALT Lactate Dehydrogenase NT-Pro-B Natriuret Pep Albumin Albumin/Globulin Ratio Meds: Medications Acetaminophen (Tylenol) 650 mg PO Q4-6HP PRN; Protocol PRN Reason: Per Pain Protocol/Fever > 101 Last Admin: 07/18/20 08:44 Dose: 650 mg Documented by: Aspirin (Aspirin) 81 mg PO BID [facility] Last Admin: 07/18/20 20:55 Dose: 81 mg Documented by: Atorvastatin Calcium (Lipitor) 40 mg PO QDAY [facility] Last Admin: 07/18/20 08:44 Dose: 40 mg Documented by: Bisacodyl (Dulcolax) 10 mg IA Q2-3DAYS PRN PRN Reason: Constipation Cetirizine HCl (Zyrtec) 10 mg PO DAILYP PRN PRN Reason: Allergy Symptoms Dexamethasone (Decadron) 6 mg PO DAILY [facility] Last Admin: 07/18/20 08:44 Dose: 6 mg Documented by: Diphenhydramine HCl (Benadryl) 50 mg PO HSP PRN PRN Reason: Insomnia Last Admin: 07/16/20 20:19 Dose: 50 mg Documented by: Docusate Sodium (Colace) 100 mg PO BID [facility] Last Admin: 07/18/20 20:55 Dose: Not Given Documented by: Enoxaparin Sodium (Lovenox) 40 mg SQ BID [facility] Last Admin: 07/18/20 20:56 Dose: 40 mg Documented by: Famotidine (Pepcid) 20 mg PO BID [facility] Last Admin: 07/18/20 20:56 Dose: 20 mg Documented by: Hydralazine HCl (Apresoline) 10 mg IV Q4-6HP PRN PRN Reason: Hypertension Potassium Chloride 40 meq/ (Dextrose) 520 mls @ 130 mls/hr IV UD PRN PRN Reason: K+ = or < 3.5 Acetaminophen (Ofirmev) 650 mg in 65 mls @ 130 mls/hr IV Q6HP PRN; Protocol PRN Reason: Per Pain Protocol/Fever > 101 Last Infusion: 07/17/20 00:25 Dose: Infused Documented by: Magnesium Sulfate (Magnesium Sulfate) 2 gm in 50 mls @ 50 mls/hr IV UD PRN PRN Reason: MG = or < 1.7 REMDESIVIR 100 mg/ Sodium (Chloride) 250 mls @ 500 mls/hr IV DAILY@1000 [facility] Stop: 07/21/20 10:29 Last Infusion: 07/18/20 11:40 Dose: Infused Documented by: Dexmedetomidine HCl 400 mcg/ (Premix) 100 mls @ 6.446 mls/hr IV .[id number] [facility]; Protocol Iron Carb/Multivit/Hyde/Folic Acid (Multivitamin W/Minerals) 1 tab PO DAILY [facility] Last Admin: 07/18/20 08:44 Dose: 1 tab Documented by: Lorazepam (Ativan) 0.5 mg IV Q6HP PRN PRN Reason: ANXIETY/SEDATION Last Admin: 07/19/20 07:33 Dose: 0.5 mg Documented by: Melatonin (Melatonin 3mg Tablet) 3 mg PO QHS [facility] Last Admin: 07/18/20 20:56 Dose: 3 mg Documented by: Metoprolol Succinate (Toprol Xl) 25 mg PO HS [facility] Last Admin: 07/18/20 20:56 Dose: 25 mg Documented by: Metoprolol Succinate (Toprol Xl) 50 mg PO DAILY [facility] Last Admin: 07/18/20 08:44 Dose: 50 mg Documented by: Metoprolol Tartrate (Lopressor) 5 mg IV Q5M PRN PRN Reason: Heart Rate > 140 bpm Nitroglycerin (Nitrostat) 0.4 mg SL Q15MIN PRN PRN Reason: Chest Pain Ondansetron HCl (Zofran Odt) 4 mg SL Q4-6HP PRN; Protocol PRN Reason: Nausea And Vomiting Ondansetron HCl (Zofran) 4 mg IV Q4-6HP PRN; Protocol PRN Reason: Nausea And Vomiting Polyethylene Glycol (Miralax) 17 gm PO DAILYP PRN PRN Reason: Constipation Potassium Chloride (Klor-Con) 40 meq PO DAILYP PRN PRN Reason: K+ < 3.5 Potassium/Phosphorus/Sodium (Neutra Phos) 2 packet PO DAILY PRN PRN Reason: PHOS <2.5 Promethazine HCl/Codeine (Promethazine-Codeine Syrup) 5 ml PO Q6HP PRN PRN Reason: Cough Last Admin: 07/18/20 08:45 Dose: 5 ml Documented by: Pseudoephedrine HCl (Sudafed) 30 mg PO DAILYP PRN PRN Reason: ALLERGY SYMPTOMS Senna/Docusate Sodium (Senna Plus Tablet) 1 tab PO HS [facility] Last Admin: 07/18/20 20:55 Dose: Not Given Documented by: Sodium Chloride (Saline Flush) 10 ml IV Q8 [facility] Last Admin: 07/19/20 07:33 Dose: 10 ml Documented by: Tamsulosin HCl (Flomax) 0.4 mg PO QDAY [facility] Last Admin: 07/18/20 08:44 Dose: 0.4 mg Documented by: Tiotropium [place] (Spiriva) 18 mcg INH DAILY [facility] Last Admin: 07/18/20 08:45 Dose: 18 mcg Documented by: Zinc Sulfate (Zinc) 50 mg PO DAILY [facility] Last Admin: 07/18/20 08:44 Dose: 50 mg Documented by: A/P Narrative A/P Narrative: A: *COVID-19 PNA: Widespread multifocal infiltrates. Continue noninvasive ventilation. On day 8 remdesivir. Dramatic clinical deterioration in the past 24 hours now on 80% FiO2 *Acute lung injury/acute hypoxic respiratory failure: 2/2 above -Profound hypoxemia with PO2/FiO2 now less than 100, worsening AA gradient on ABG. -on Bipap now up to 80% fiO2 since last evening -Chest imaging interval worsening. Start diuresis. *Sepsis: improved *Acute encephalopathy: 2/2 critical care illness/acute viral syndrome -waxes/wanes, impulsive at times and worse at night *Severe weakness: 2/2 acute viral syndrome. *Transaminitis, mild: 2/2 viral illness *Morbid obesity: *CKD III: *CAD: home aspirin/statin/BB *HTN: bb *goals of care: continue current therapy and if worsens or does not improve will consider comfort care. Do not intubate or transfer to higher care facility at this time. Plan: -prognosis poor, declining -self prone positioning -Aggressive diuresis/Precedex drip for sedation -Remdesivir/dexamethasone -empiric Abx d/c -cont home BB/statin/ASA -Continue directed therapies/nutrition support/early mobilization,pt/ot -in discussion with Son (Dieudonne, who has been in discussion with older brother Parjmit), continue bipap support but do not intubate or transfer to higher care facility. The patient requested family to make decisions per nurse (07/17); additionally, the pt stated on admit no intubate/transfer. -ppx: lovenox Critical care time in excess of 45 minutes Time Spent With Patient Time: Total time spent is greater than 50% in coordination of care (as documented) at patient's floor/unit and/or counseling patient: QUALITY VTE Deep Vein Thrombosis/Pulmonary Embolism Present on Admission: No
[2020-07-19] MEDS ORDERED: PSEUDOEPHEDRINE 30 MG TABLET PO PRN (08:33)
[2020-07-19] MEDS ORDERED: METOPROLOL TARTRATE 5 MG/5 ML VIAL IV PRN (08:33)
[2020-07-19] MEDS ORDERED: BISACODYL 10 MG SUPP.RECT PR PRN (08:33)
[2020-07-19] MEDS ORDERED: PROMETHAZINE HCL/CODEINE 1 ML SYRUP PO PRN (08:33)
[2020-07-19] MEDS ORDERED: CETIRIZINE 10 MG TABLET PO PRN (08:33)
[2020-07-19] MEDS ORDERED: ACETAMINOPHEN 325 MG TABLET PO PRN (08:33)
[2020-07-19] MEDS ORDERED: hydrALAZINE 20 MG/ML VIAL IV PRN (08:33)
[2020-07-19] MEDS ORDERED: NITROGLYCERIN 0.4 MG TAB.SUBL SL PRN (08:33)
[2020-07-19] MEDS ORDERED: LORazepam 2 MG/ML VIAL IV PRN (08:33)
[2020-07-19] MEDS ORDERED: POTASSIUM CHLORIDE 20 MEQ PACKET PO PRN (08:33)
[2020-07-19] MEDS ORDERED: ONDANSETRON 4 MG/2 ML VIAL IV PRN (08:33)
[2020-07-19] MEDS ORDERED: NEUTRA PHOS 1 PACKET PO PRN (08:33)
[2020-07-19] MEDS ORDERED: ONDANSETRON 4 MG ODT TABLET SL PRN (08:33)
[2020-07-19] MEDS ORDERED: POTASSIUM CHLORIDE 40 MEQ in DEXTROSE 5% IN WATER 500 ML IV PRN (08:33)
[2020-07-19] MEDS ORDERED: MAGNESIUM SULFATE 2 GM/50 ML BAG IV PRN (08:33)
[2020-07-19] MEDS ORDERED: POLYETHYLENE GLYCOL 3350 17 GM PACKET PO PRN (08:33)
--- NOTE | 2020-07-19 08:34 | XRay Report ---
INDICATION: Crepitus in right chest TECHNIQUE: AP portable semiupright chest x-ray COMPARISON: None FINDINGS:There is soft tissue lucency within the chest and supraclavicular regions. Appearance is consistent with subcutaneous emphysema. Etiology is not certain. There is no definite pneumothorax identified on this semierect upright chest x-ray. There may be pneumomediastinum. Lungs:Diffuse pulmonary parenchymal infiltrates with interval worsening. There is parenchymal consolidation in the left midlung and left lung base. No infiltrates are worse than on prior examinations. Findings may be due to congestive heart failure but pneumonia is possible. Heart, vascular:There is cardiomegaly. Pulmonary vascularity is prominent. Edema is suspected. Mediastinum, low:Probable pneumomediastinum Pleura:No pleural fluid. No pleural-based mass or calcification Skeletal:Previous median sternotomy. Multiple surgical clips consistent with coronary artery bypass IMPRESSION: 1. Increasing pulmonary parenchymal infiltrates. Findings may be due to worsening pneumonia, pulmonary edema, or both 2. Subcutaneous emphysema and probable pneumomediastinum Interpreted and Authenticated by: Shaq Gordon 07/19/20
[2020-07-19] MEDS: 0.9 % SODIUM CHLORIDE 250 ML IV SCH ×2 (08:35→20:54)
--- NOTE | 2020-07-19 08:43 | Internal Med Progress Note ---
SUBJECTIVE Subjective Patient information: Note initiated : 07/18/20 at 19:39 pm Service Date, if different from initiated Date: [] Patient: Guillermo Burnette 65 y/o M admitted on 07/12/20 for Shortness of breath. Chief Complaint: [] Interval history: History of present illness: Mr. Burnette is a 65 year old M who lives with his son and grandson presents to the ER following 2 weeks onset of increasing malaise weakness URI symptoms. He was diagnosed with Covid 2 weeks ago however over the last 4 days has gotten increasingly short of breath with exertion. Patient has not been able to perform his ADLs. In the last 24 hours he has become increasingly somnolent and lethargic unable to get out of bed. He endorses loss of appetite. Patient saturation went down to low 80s along with a fever. Subsequently was brought into the ER for evaluation. Initial work-up was consistent with Covid pneumonia on chest imaging. Patient was found in significant distress with tachycardia over 100 and tachypneic at 46. He was started on supplemental oxygen and barely saturating 90% on 4 L. Blood gas 7.3 on 3 L oxygen. White count 7.2, D-dimer 1.76, creatinine 2. Covid positive. Subsequently hospitalist service was consulted in light of Covid pneumonia. Patient does not want to be transferred in the event he deteriorates and not as he wants intubation. He is agreeable noninvasive mechanical ventilation At the time of my evaluation patient is lethargic and distressed breathing rapidly. He was able to answer most of the questions and endorsed to history as above. He denied associated headache, photophobia but endorses to generalized body ache, weakness, lethargy. He denies diarrhea, dysuria. Denies productive sputum but endorses dry cough. He denies rash or joint swelling or pain 07/13-overnight on 55% FiO2. ABG 7.37/33/70 on noninvasive mechanical ventilation. Bilateral infiltrates on chest imaging. On remdesivir /dexamethasone. Continue thrombosis prophylaxis. GFR 38 LFTs stable. Procalcitonin 0.15. Empiric antibiotics can be discontinued in 24 hours. 07/14 Unable to wean him below 55% this morning. Although he states he feels maybe a little better. Occasional cough. No other complaints. 07/15 agitated with some confusion last night. Resting comfortably this morning. Good oxygenation on 55%. Will wean down FiO2. Inflammatory markers improving 07/16 Patient pulled off his mask last night when the friend got on it to put him to 100% FiO2. He is weaned back down to 55%. Sats low 90s. Renal function improved 07/17 Patient restless again last night. Is at 55% FiO2 this morning. Waxing and waning. Follow-up chest x-ray no improvement and possibly slightly worse, consider edema component. There seems to have been confusion with CODE STATUS. Patient had originally told the ER physician and the hospitalist I did not want to be intubated. But then shortly thereafter on the floor with the nurse he signed documentation saying okay to do that. His son, Dieudonne, was quite surprised by that because he always understood that his father was a DO NOT RESUSCITATE. His father expressed to his sons in the past that he would not want to be intubated such a circumstance. The nurse did readdress code status with the patient who said that he would rather staff talk with his family to come up with a consensus. I called and discussed with Dieudonne the son who has also been discussing it with his older brother Parmjit. And they are of the consensus that their father would not want to be intubated especially in a situation such as this where he is deteriorating from COVID-19 and will more than likely require intubation for a prolonged period of time without a guarantee of a full recovery. Explained to Dieudonne of the patient has been deteriorating in the past 24 hours. He is currently requiring 70% FiO2. Respiratory therapist has adjusted BiPAP settings and increased PEEP. In discussion with Dieudonne it has been decided to continue current therapy and to see if the patient can start to improve again; to not intubate and transfer to higher care facility. If he does not improve then we would need to consider comfort care focus if the patient did not have a event prior to that time. / FIO2 80% o/n. No overnight issues overnight. Alert and oriented with occasional mild confusion. Declining. Had a discussion with family yesterday. Continue monitoring other day and see how he does. If he continues to decline or show no improvement will need to discuss comfort measures. Patient does state he feels little better today. Hopefully we can start coming back down on the oxygen. 07/18-addendum Patient continues to deteriorate. Currently on 80% FiO2. Intermittently ag itated. Reviewed blood gas/chest imaging/labs and hemodynamics. We will attempt CPAP mode as PCO2 WNL, remains a very high risk mortality with grim prognosis in light of bilateral multifocal infiltrate consistent with severe Covid pneumonia. Constitutional Vitals: Vital Signs Temp Pulse Resp BP Pulse Ox 97.6 F 92 H 27 H 146/70 89 L 07/19/20 02:00 07/19/20 07:35 07/19/20 07:35 07/19/20 06:01 07/19/20 07:35 Period Temp Pulse Resp BP Sys/Caro Pulse Ox Last 24 Hr 97.2 F-98.2 F 69-95 14-35 137-183/69-89 67-97 Intake and Output 07/18/20 07/19/20 07/19/20 21:59 05:59 13:59 Intake Total 1194 750 Output Total 200 300 Balance 994 450 Weight 128.911 kg on noninvasive ventilation Anxious 80% FiO2 Tachypneic Intake & Output: Intake & Output 07/18/20 07/19/20 07/19/20 21:59 05:59 13:59 Intake Total 1194 750 Output Total 200 300 Balance 994 450 Weight 128.911 kg Intake: Nourishment/Supplement quantity 474 (ml) Oral 720 750 Output: Void Amount 200 300 # of times incontinent of urine 0 Other: Meal Nourishment/Supplement Percent of Meal Consumed 100% Feeding Ability Needs Supervision Nourishment/Supplement name Breeze Urine Appearance Clear Straight Clear Urine Color Dark Yellow Straight Dark [place] Dark [place] Exam: General: Awake, No acute Distress, obese Eyes/N/T: EOMI, Head/Neck: neck supple, CV: RRR, No murmurs, Pulm: mild rhonchi/rales bilaterally and diminished but improved., no wheezing Abd: soft, nontender, +BS x4 Ext: no clubbing/cyanosis, mild b/l LE edema Neuro: answers questions but difficult to hear given BiPAP, no focal deficits, moves all extremities, Skin: warm/dry OBJ DATA Labs CBC & Chem 7: 07/13/20 05:27 07/19/20 05:00 Labs: Abnormal Lab Results 07/19/20 07/18/20 07/17/20 05:00 05:35 07:29 Chloride 109 H Carbon Dioxide BUN 51 H 55 H Creatinine 1.6 H 1.6 H Glucose 130 H 150 H Uric Acid 8.2 H 9.3 H Magnesium 2.9 H 3.0 H AST 53 H 58 H ALT 46 H 46 H Lactate Dehydrogenase 706 H 767 H NT-Pro-B Natriuret Pep 125.3 H Albumin 3.1 L Albumin/Globulin Ratio 0.8 L 0.9 L 07/17/20 07:29 Chloride 110 H Carbon Dioxide 20 L BUN 54 H Creatinine 1.7 H Glucose 143 H Uric Acid Magnesium AST ALT Lactate Dehydrogenase NT-Pro-B Natriuret Pep Albumin Albumin/Globulin Ratio Meds: Medications Acetaminophen (Tylenol) 650 mg PO Q4-6HP PRN; Protocol PRN Reason: Per Pain Protocol/Fever > 101 Aspirin (Aspirin) 81 mg PO BID STEVEN Atorvastatin Calcium (Lipitor) 40 mg PO QDAY STEVEN Bisacodyl (Dulcolax) 10 mg ID Q2-3DAYS PRN PRN Reason: Constipation Cetirizine HCl (Zyrtec) 10 mg PO DAILYP PRN PRN Reason: Allergy Symptoms Dexamethasone (Decadron) 6 mg PO DAILY STEVEN Diphenhydramine HCl (Benadryl) 50 mg PO HSP PRN PRN Reason: Insomnia Docusate Sodium (Colace) 100 mg PO BID STEVEN Enoxaparin Sodium (Lovenox) 40 mg SQ BID STEVEN Famotidine (Pepcid) 20 mg PO BID STEVEN Furosemide (Lasix) 40 mg IV BIDD STEVEN Hydralazine HCl (Apresoline) 10 mg IV Q4-6HP PRN PRN Reason: Hypertension Dexmedetomidine HCl 400 mcg/ (Premix) 100 mls @ 6.446 mls/hr IV .[id number] STEVEN; Protocol Magnesium Sulfate (Magnesium Sulfate) 2 gm in 50 mls @ 50 mls/hr IV UD PRN PRN Reason: MG = or < 1.7 Potassium Chloride 40 meq/ (Dextrose) 520 mls @ 130 mls/hr IV UD PRN PRN Reason: K+ = or < 3.5 Acetaminophen (Ofirmev) 650 mg in 65 mls @ 130 mls/hr IV Q6HP PRN; Protocol PRN Reason: Per Pain Protocol/Fever > 101 REMDESIVIR 100 mg/ Sodium (Chloride) 250 mls @ 500 mls/hr IV DAILY@1000 STEVEN Stop: 07/21/20 10:29 Iron Carb/Multivit/[place]/Folic Acid (Multivitamin W/Minerals) 1 tab PO DAILY [facility] Lorazepam (Ativan) 0.5 mg IV Q6HP PRN PRN Reason: ANXIETY/SEDATION Melatonin (Melatonin 3mg Tablet) 3 mg PO QHS [facility] Metoprolol Succinate (Toprol Xl) 25 mg PO HS [facility] Metoprolol Succinate (Toprol Xl) 50 mg PO DAILY [facility] Metoprolol Tartrate (Lopressor) 5 mg IV Q5M PRN PRN Reason: Heart Rate > 140 bpm Nitroglycerin (Nitrostat) 0.4 mg SL Q15MIN PRN PRN Reason: Chest Pain Ondansetron HCl (Zofran Odt) 4 mg SL Q4-6HP PRN; Protocol PRN Reason: Nausea And Vomiting Ondansetron HCl (Zofran) 4 mg IV Q4-6HP PRN; Protocol PRN Reason: Nausea And Vomiting Polyethylene Glycol (Miralax) 17 gm PO DAILYP PRN PRN Reason: Constipation Potassium Chloride (Klor-Con) 40 meq PO DAILYP PRN PRN Reason: K+ < 3.5 Potassium/Phosphorus/Sodium (Neutra Phos) 2 packet PO DAILY PRN PRN Reason: PHOS <2.5 Promethazine HCl/Codeine (Promethazine-Codeine Syrup) 5 ml PO Q6HP PRN PRN Reason: Cough Pseudoephedrine HCl (Sudafed) 30 mg PO DAILYP PRN PRN Reason: ALLERGY SYMPTOMS Senna/Docusate Sodium (Senna Plus Tablet) 1 tab PO HS [facility] Sodium Chloride (Saline Flush) 10 ml IV Q8 [facility] Tamsulosin HCl (Flomax) 0.4 mg PO QDAY [facility] Tiotropium Munith (Spiriva) 18 mcg INH DAILY [facility] Zinc Sulfate (Zinc) 50 mg PO DAILY [facility] A/P Narrative A/P Narrative: A: *COVID-19 PNA: Widespread multifocal infiltrates. Continue noninvasive ventilation. On day 8 remdesivir. Dramatic clinical deterioration in the past 24 hours now on 80% FiO2 *Acute lung injury/acute hypoxic respiratory failure: 2/2 above -Profound hypoxemia with PO2/FiO2 now less than 100, worsening AA gradient on ABG. -on Bipap now up to 80% fiO2 since last evening -Chest imaging interval worsening. Start diuresis. *Sepsis: improved *Acute encephalopathy: 2/2 critical care illness/acute viral syndrome -waxes/wanes, impulsive at times and worse at night *Severe weakness: 2/2 acute viral syndrome. *Transaminitis, mild: 2/2 viral illness *Morbid obesity: *CKD III: *CAD: home aspirin/statin/BB *HTN: bb *goals of care: continue current therapy and if worsens or does not improve will consider comfort care. Do not intubate or transfer to higher care facility at this time. Plan: -Worsening overall status -Interval chest imaging/blood gas -Continue remdesivir/dexamethasone -in discussion with Son (Dieudonne, who has been in discussion with older brother Parmjit), continue bipap support but do not intubate or transfer to higher care facility. The patient requested family to make decisions per nurse (07/17); additionally, the pt stated on admit no intubate/transfer. Critical care time 35 minutes Time Spent With Patient Time: Total time spent is greater than 50% in coordination of care (as documented) at patient's floor/unit and/or counseling patient: QUALITY VTE Deep Vein Thrombosis/Pulmonary Embolism Present on Admission: No
[2020-07-19 08:59] LABS: Basophils # (Auto) 0.08 K/mcL (0.00-0.20); Basophils % (Auto) 0.5 % (0.0-2.0); Eosinophils % (Auto) 0.6 % (0.0-7.0); Hematocrit 45.8 % (41.0-55.0); Hemoglobin 14.5 g/dL (13.5-16.5); Lymphocytes # (Auto) 1.34 K/mcL (1.50-4.80); Lymphocytes % (Auto) 8.3 % (15.0-49.0); Mean Cell Volume 91.8 fL (80.0-100.0); Mean Corpuscular HGB Conc 31.7 g/dL (31.0-36.0); Mean Platelet Volume 9.9 fL (7.4-10.4); Monocytes # (Auto) 0.71 K/mcL (0.10-0.90); Monocytes % (Auto) 4.4 % (1.0-12.0); Neutrophils % (Auto) 86.2 % (38.0-78.0); Platelet Count 378 K/mcL (140-440); RBC 4.99 M/mcL (4.50-5.90); Red Cell Distribution Width 12.4 % (11.5-14.5); WBC 16.1 K/mcL (4.5-11.0)
[2020-07-19] MEDS: FUROSEMIDE 40 MG/4 ML VIAL IV SCH ×2 (08:59→16:40)
[2020-07-19] MEDS ORDERED: DEXAMETHASONE 4 MG TABLET PO SCH (09:00)
[2020-07-19] MEDS ORDERED: FAMOTIDINE 20 MG TABLET PO SCH (09:00)
[2020-07-19] MEDS: morphine 4 MG/ML VIAL IV PRN ×2 (09:14→14:33)
[2020-07-19] MEDS: FAMOTIDINE/PF 20 MG/2 ML VIAL IV SCH ×2 (09:16→21:36)
[2020-07-19] MEDS: ENOXAPARIN 40 MG/0.4 ML SYRINGE SQ SCH ×2 (09:17→21:36)
[2020-07-19] MEDS: DEXAMETHASONE 10 MG/ML VIAL IV SCH (09:17)
[2020-07-19] MEDS: ACETAMINOPHEN 650 MG/65 ML BOTTLE IV PRN (09:32)
[2020-07-19] MEDS: DOCUSATE SODIUM 100 MG CAPSULE PO SCH ×2 (09:57→21:27)
[2020-07-19] MEDS: ASPIRIN 81 MG TAB.CHEW PO SCH ×2 (09:57→21:27)
[2020-07-19] MEDS: TAMSULOSIN 0.4 MG CAPSULE PO SCH (09:58)
[2020-07-19] MEDS: ATORVASTATIN 40 MG TABLET PO SCH (09:58)
[2020-07-19] MEDS: MULTIVIT,THER IRON,CA,FA & MIN 1 TABLET PO SCH (10:01)
[2020-07-19] MEDS: TIOTROPIUM BROMIDE 18 MCG INHALANT INH SCH (10:01)
[2020-07-19] MEDS: METOPROLOL SUCCINATE 50 MG TAB.XL.24H PO SCH (10:01)
[2020-07-19] MEDS: ZINC SULFATE 50 MG CAPSULE PO SCH (10:02)
[2020-07-19] MEDS: REMDESIVIR 100 MG in 0.9 % SODIUM CHLORIDE 250 ML IV SCH (10:42)
--- NOTE | 2020-07-19 12:53 | XRay Report ---
INDICATION: SOB TECHNIQUE: AP portable semiupright chest x-ray COMPARISON: Previous chest x-rays dated 07/19/2020, 07/17/2020, 07/14/2020 FINDINGS:Previous median sternotomy. Multiple surgical clips consistent with coronary artery bypass procedure Lungs:Bilateral diffuse pulmonary parenchymal infiltrates. These are slightly worse than on prior examination dated 07/19/2020. Infiltrates are significantly worse than on 07/17/2020 and 07/14/2020. Appearance is consistent with pneumonia. Associated congestive heart failure remains possible. Heart, vascular:There is cardiomegaly, unchanged Mediastinum, low:Probable pneumomediastinum. This is not well visualized. Pleura:No definite pneumothorax. No evidence for significant pleural effusion Skeletal:Negative. There is extensive subcutaneous emphysema. This is worse since previous examination dated 07/19/2020 and new since 07/17/2020 IMPRESSION: 1. Increasing subcutaneous emphysema 2. No detectable pneumothorax. Possible pneumomediastinum 3. Increasing diffuse infiltrates consistent with pneumonia. Associated congestive heart failure is also possible Interpreted and Authenticated by: Shaq Gordon 07/19/20
[2020-07-19] MEDS: DEXMEDETOMIDINE 400 MCG in PREMIX 1 BAG IV SCH (18:17)
[2020-07-19] MEDS ORDERED: SENNOSIDES/DOCUSATE SODIUM 1 TAB TABLET PO SCH (21:00)
[2020-07-19] MEDS ORDERED: MELATONIN 3 MG TABLET PO SCH (21:00)
[2020-07-19] MEDS ORDERED: METOPROLOL SUCCINATE 25 MG TAB.XL.24H PO SCH (21:00)
[2020-07-19] MEDS ORDERED: diphenhydrAMINE 25 MG CAPSULE PO PRN (21:00)
[2020-07-20] MEDS: morphine 4 MG/ML VIAL IV PRN ×6 (00:53→16:58)
[2020-07-20] MEDS: DEXMEDETOMIDINE 400 MCG in PREMIX 1 BAG IV SCH ×2 (01:53→07:46)
[2020-07-20] MEDS: 0.9 % SODIUM CHLORIDE 10 ML SYRINGE IV SCH (05:56)
[2020-07-20 07:16] LABS: Basophils # (Auto) 0.16 K/mcL (0.00-0.20); Basophils % (Auto) 0.8 % (0.0-2.0); Eosinophils # (Auto) 0.26 K/mcL (0.00-0.70); Eosinophils % (Auto) 1.3 % (0.0-7.0); Hematocrit 53.3 % (41.0-55.0); Hemoglobin 16.4 g/dL (13.5-16.5); Lymphocytes # (Auto) 1.54 K/mcL (1.50-4.80); Lymphocytes % (Auto) 7.5 % (15.0-49.0); Mean Cell Volume 93.8 fL (80.0-100.0); Mean Corpuscular HGB Conc 30.8 g/dL (31.0-36.0); Mean Platelet Volume 10.1 fL (7.4-10.4); Monocytes # (Auto) 0.75 K/mcL (0.10-0.90); Monocytes % (Auto) 3.6 % (1.0-12.0); Neutrophils % (Auto) 86.8 % (38.0-78.0); Platelet Count 382 K/mcL (140-440); RBC 5.68 M/mcL (4.50-5.90); Red Cell Distribution Width 12.6 % (11.5-14.5); WBC 20.6 K/mcL (4.5-11.0)
[2020-07-20] MEDS: ACETAMINOPHEN 650 MG/65 ML BOTTLE IV PRN (07:28)
[2020-07-20 07:37] LABS: ALT/SGPT 51 U/L (<40); AST/SGOT 50 U/L (<40); Albumin 3.4 gm/dL (3.2-5.2); Albumin/Globulin Ratio 0.8 (1.0-2.3); Alkaline Phosphatase 84 U/L (39-117); Bilirubin,Direct 0.2 mg/dL (<0.3); Bilirubin,Total 0.8 mg/dL (0.1-1.0); Blood Urea Nitrogen 58 mg/dL (8-23); Calcium 9.1 mg/dL (8.6-10.4); Carbon Dioxide 26 mmol/L (22-30); Chloride 105 mmol/L (96-108); Globulin 4.2 gm/dL (2.2-3.7); Glomerular Filtration Rate 36; Glucose 113 mg/dL (70-105); Lactate Dehydrogenase 700 U/L (135-225); Triglycerides 112 mg/dL (<150); Uric Acid 9.6 mg/dL (2.5-8.0)
[2020-07-20] MEDS: FUROSEMIDE 40 MG/4 ML VIAL IV SCH (07:46)
[2020-07-20] MEDS: 0.9 % SODIUM CHLORIDE 250 ML IV SCH (07:47)
[2020-07-20] MEDS: ASPIRIN 81 MG TAB.CHEW PO SCH (09:00)
[2020-07-20] MEDS: DOCUSATE SODIUM 100 MG CAPSULE PO SCH (09:00)
[2020-07-20] MEDS: TIOTROPIUM BROMIDE 18 MCG INHALANT INH SCH (09:01)
[2020-07-20] MEDS: MULTIVIT,THER IRON,CA,FA & MIN 1 TABLET PO SCH (09:01)
[2020-07-20] MEDS: ZINC SULFATE 50 MG CAPSULE PO SCH (09:01)
[2020-07-20] MEDS: TAMSULOSIN 0.4 MG CAPSULE PO SCH (09:01)
[2020-07-20] MEDS: ATORVASTATIN 40 MG TABLET PO SCH (09:01)
[2020-07-20] MEDS: DEXAMETHASONE 10 MG/ML VIAL IV SCH (09:06)
[2020-07-20] MEDS: FAMOTIDINE/PF 20 MG/2 ML VIAL IV SCH (09:06)
[2020-07-20] MEDS: ENOXAPARIN 40 MG/0.4 ML SYRINGE SQ SCH (09:07)
--- NOTE | 2020-07-20 09:15 | Internal Med Progress Note ---
SUBJECTIVE Subjective Patient information: Note initiated : 07/20/20 at 9:14 am Service Date, if different from initiated Date: [] Patient: Guillermo Burnette 65 y/o M admitted on 07/12/20 for Shortness of breath. Chief Complaint: [] Interval history: History of present illness: Mr. Burnette is a 65 year old M who lives with his son and grandson presents to the ER following 2 weeks onset of increasing malaise weakness URI symptoms. He was diagnosed with Covid 2 weeks ago however over the last 4 days has gotten increasingly short of breath with exertion. Patient has not been able to perform his ADLs. In the last 24 hours he has become increasingly somnolent and lethargic unable to get out of bed. He endorses loss of appetite. Patient saturation went down to low 80s along with a fever. Subsequently was brought into the ER for evaluation. Initial work-up was consistent with Covid pneumonia on chest imaging. Patient was found in significant distress with tachycardia over 100 and tachypneic at 46. He was started on supplemental oxygen and barely saturating 90% on 4 L. Blood gas 7.3 on 3 L oxygen. White count 7.2, D-dimer 1.76, creatinine 2. Covid positive. Subsequently hospitalist service was consulted in light of Covid pneumonia. Patient does not want to be transferred in the event he deteriorates and not as he wants intubation. He is agreeable noninvasive mechanical ventilation At the time of my evaluation patient is lethargic and distressed breathing rapidly. He was able to answer most of the questions and endorsed to history as above. He denied associated headache, photophobia but endorses to generalized body ache, weakness, lethargy. He denies diarrhea, dysuria. Denies productive sputum but endorses dry cough. He denies rash or joint swelling or pain 07/13-overnight on 55% FiO2. ABG 7.37/33/70 on noninvasive mechanical ventilation. Bilateral infiltrates on chest imaging. On remdesivir/ dexamethasone. Continue thrombosis prophylaxis. GFR 38 LFTs stable. Procalcitonin 0.15. Empiric antibiotics can be discontinued in 24 hours. 07/14 Unable to wean him below 55% this morning. Although he states he feels maybe a little better. Occasional cough. No other complaints. 07/15 agitated with some confusion last night. Resting comfortably this morning. Good oxygenation on 55%. Will wean down FiO2. Inflammatory markers improving 07/16 Patient pulled off his mask last night when the friend got on it to put him to 100% FiO2. He is weaned back down to 55%. Sats low 90s. Renal function improved 07/17 Patient restless again last night. Is at 55% FiO2 this morning. Waxing and waning. Follow-up chest x-ray no improvement and possibly slightly worse, consider edema component. There seems to have been confusion with CODE STATUS. Patient had originally told the ER physician and the hospitalist I did not want to be intubated. But then shortly thereafter on the floor with the nurse he signed documentation saying okay to do that. His son, Dieudonne, was quite surprised by that because he always understood that his father was a DO NOT RESUSCITATE. His father expressed to his sons in the past that he would not want to be intubated such a circumstance. The nurse did readdress code status with the patient who said that he would rather staff talk with his family to come up with a consensus. I called and discussed with Dieudonne the son who has also been discussing it with his older brother Parmjit. And they are of the consensus that their father would not want to be intubated especially in a situation such as this where he is deteriorating from COVID-19 and will more than likely require intubation for a prolonged period of time without a guarantee of a full recovery. Explained to Dieudonne of the patient has been deteriorating in the past 24 hours. He is currently requiring 70% FiO2. Respiratory therapist has adjusted BiPAP settings and increased PEEP. In discussion with Dieudonne it has been decided to continue current therapy and to see if the patient can start to improve again; to not intubate and transfer to higher care facility. If he does not improve then we would need to consider comfort care focus if the patient did not have a event prior to that time. / FIO2 80% o/n. No overnight issues overnight. Alert and oriented with occasional mild confusion. Declining. Had a discussion with family yesterday. Continue monitoring other day and see how he does. If he continues to decline or show no improvement will need to discuss comfort measures. Patient does state he feels little better today. Hopefully we can start coming back down on the oxygen. 07/18-addendum Patient continues to deteriorate. Currently on 80% FiO2. Intermittently chuck tated. Reviewed blood gas/chest imaging/labs and hemodynamics. We will attempt CPAP mode as PCO2 WNL, remains a very high risk mortality with grim prognosis in light of bilateral multifocal infiltrate consistent with severe Covid pneumonia. 07/19-patient clinically deteriorating. Worsening chest infiltrates and hypoxia requiring 80% FiO2 on noninvasive ventilation. ABG PO2 52 on 80% FiO2. Start Precedex for sedation to continue oxygenation on noninvasive ventilation. Remains DNR. Very high risk mortality. Will update son on patient's critical state. Creatinine 1.6. Minto 2 score over 20 07/20-clinically deteriorating with worsening interval imaging/subcutis emphysema. On 80% FiO2. Experiencing altered mental status with increasing encephalopathy and unable to communicate. Case discussed with patient's son Dieudonne on phone. Will likely undergo transition to comfort interventions. Overnight T-max 100.5. No meaningful improvement demonstrated by patient over the last 7 days despite maximal aggressive intervention short of intubation and life support. Worsening white count of 20,000. Start blood cultures/empiric antibiotic coverage Constitutional Vitals: Vital Signs Temp Pulse Resp BP Pulse Ox 99.9 F H 97 H 25 H 142/72 91 07/20/20 08:13 07/20/20 08:03 07/20/20 08:03 07/20/20 08:00 07/20/20 08:03 Period Temp Pulse Resp BP Sys/Caro Pulse Ox Last 24 Hr 98.2 F-100.5 F 51-104 16-35 118-183/70-155 68-96 Intake and Output 07/19/20 07/20/20 07/20/20 21:59 05:59 13:59 Intake Total 510 200 370 Output Total 1175 710 Balance -665 -510 370 Weight 125.781 kg alert but confused Labored breathing On 80% FiO2 Intake & Output: Intake & Output 07/19/20 07/20/20 07/20/20 21:59 05:59 13:59 Intake Total 510 200 370 Output Total 1175 710 Balance -665 -510 370 Weight 125.781 kg Intake: Nourishment/Supplement quantity 200 (ml) IV 310 370 Sodium Chloride 0.9% 250 ml @ 246 218 20 mls/hr IV .[id number] [facility] Rx#: [id number] Precedex 400 Mcg/100 ml 64 87 Dextrose 400 Mcg In Premix 1 Bag @ 0.2 MCG/KG/HR 6.446 mls/ hr IV .[id number] [facility] Rx#: [id number] Oral 200 Output: Urine Catheter Amount 1175 710 Other: Meal Nourishment/Supplement Percent of Meal Consumed 0% Feeding Ability Needs Supervision Total Assistance Nourishment/Supplement name Boost Urine Appearance Clear Clear Uretheral (Jones) Clear Clear Urine Color Pale Pale Uretheral (Jones) Pale Pale Urine Odor Normal Normal Exam: General: Awake, No acute Distress, obese Eyes/N/T: EOMI, Head/Neck: neck supple, CV: RRR, No murmurs, Pulm: mild rhonchi/rales bilaterally and diminished but improved., no wheezing Abd: soft, nontender, +BS x4 Ext: no clubbing/cyanosis, mild b/l LE edema Neuro: answers questions but difficult to hear given BiPAP, no focal deficits, m oves all extremities, Skin: warm/dry OBJ DATA Labs CBC & Chem 7: 07/20/20 05:48 07/20/20 05:48 Labs: Abnormal Lab Results 07/20/20 07/20/20 07/19/20 05:48 05:48 05:00 WBC 20.6 H 16.1 H MCHC 30.8 L Neut % (Auto) 86.8 H 86.2 H Lymph % (Auto) 7.5 L 8.3 L Lymph # (Auto) 1.34 L Absolute Neutrophils 17.90 H 13.89 H Chloride BUN 58 H Creatinine 1.9 H Glucose 113 H Uric Acid 9.6 H Magnesium 2.8 H AST 50 H ALT 51 H Lactate Dehydrogenase 700 H Albumin Globulin 4.2 H Albumin/Globulin Ratio 0.8 L 07/19/20 07/18/20 05:00 05:35 WBC MCHC Neut % (Auto) Lymph % (Auto) Lymph # (Auto) Absolute Neutrophils Chloride 109 H BUN 51 H 55 H Creatinine 1.6 H 1.6 H Glucose 130 H 150 H Uric Acid 8.2 H 9.3 H Magnesium 2.9 H 3.0 H AST 53 H 58 H ALT 46 H 46 H Lactate Dehydrogenase 706 H 767 H Albumin 3.1 L Globulin Albumin/Globulin Ratio 0.8 L 0.9 L Meds: Medications Acetaminophen (Tylenol) 650 mg PO Q4-6HP PRN; Protocol PRN Reason: Per Pain Protocol/Fever > 101 Aspirin (Aspirin) 81 mg PO BID [facility] Last Admin: 07/20/20 09:00 Dose: Not Given Documented by: Atorvastatin Calcium (Lipitor) 40 mg PO QDAY [facility] Last Admin: 07/20/20 09:01 Dose: Not Given Documented by: Bisacodyl (Dulcolax) 10 mg NC Q2-3DAYS PRN PRN Reason: Constipation Cetirizine HCl (Zyrtec) 10 mg PO DAILYP PRN PRN Reason: Allergy Symptoms Dexamethasone (Decadron) 6 mg IV DAILY [facility] Last Admin: 07/20/20 09:06 Dose: 6 mg Documented by: Diphenhydramine HCl (Benadryl) 50 mg PO HSP PRN PRN Reason: Insomnia Docusate Sodium (Colace) 100 mg PO BID [facility] Last Admin: 07/20/20 09:00 Dose: Not Given Documented by: Enoxaparin Sodium (Lovenox) 40 mg SQ BID [facility] Last Admin: 07/20/20 09:07 Dose: 40 mg Documented by: Famotidine (Pepcid) 20 mg IV Q12 [facility] Last Admin: 07/20/20 09:06 Dose: 20 mg Documented by: Furosemide (Lasix) 40 mg IV BIDD [facility] Last Admin: 07/20/20 07:46 Dose: 40 mg Documented by: Hydralazine HCl (Apresoline) 10 mg IV Q4-6HP PRN PRN Reason: Hypertension Dexmedetomidine HCl 400 mcg/ (Premix) 100 mls @ 6.446 mls/hr IV .[id number] [facility]; Protocol Last Admin: 07/20/20 07:46 Dose: 0.2 mcg/kg/hr, 6.446 mls/hr Documented by: Magnesium Sulfate (Magnesium Sulfate) 2 gm in 50 mls @ 50 mls/hr IV UD PRN PRN Reason: MG = or < 1.7 Potassium Chloride 40 meq/ (Dextrose) 520 mls @ 130 mls/hr IV UD PRN PRN Reason: K+ = or < 3.5 Acetaminophen (Ofirmev) 650 mg in 65 mls @ 130 mls/hr IV Q6HP PRN; Protocol PRN Reason: Per Pain Protocol/Fever > 101 Last Infusion: 07/20/20 07:59 Dose: Infused Documented by: REMDESIVIR 100 mg/ Sodium (Chloride) 250 mls @ 500 mls/hr IV DAILY@1000 [facility] Stop: 07/21/20 10:29 Last Infusion: 07/19/20 11:15 Dose: Infused Documented by: Sodium Chloride (Sodium Chloride 0.9%) 250 mls @ 20 mls/hr IV .[id number] [facility] Last Admin: 07/20/20 07:47 Dose: 20 mls/hr Documented by: Iron Carb/Multivit/[place]/Folic Acid (Multivitamin W/Minerals) 1 tab PO DAILY [facility] Last Admin: 07/20/20 09:01 Dose: Not Given Documented by: Lorazepam (Ativan) 0.5 mg IV Q6HP PRN PRN Reason: ANXIETY/SEDATION Melatonin (Melatonin 3mg Tablet) 3 mg PO QHS [facility] Last Admin: 07/19/20 21:27 Dose: Not Given Documented by: Metoprolol Succinate (Toprol Xl) 25 mg PO HS [facility] Last Admin: 07/19/20 21:28 Dose: Not Given Documented by: Metoprolol Succinate (Toprol Xl) 50 mg PO DAILY [facility] Last Admin: 07/19/20 10:01 Dose: Not Given Documented by: Metoprolol Tartrate (Lopressor) 5 mg IV Q5M PRN PRN Reason: Heart Rate > 140 bpm Morphine Sulfate (Morphine) 0 mg IV Q2HP PRN; Protocol PRN Reason: Per Pain Protocol Last Admin: 07/20/20 07:29 Dose: 2 mg Documented by: Nitroglycerin (Nitrostat) 0.4 mg SL Q15MIN PRN PRN Reason: Chest Pain Ondansetron HCl (Zofran Odt) 4 mg SL Q4-6HP PRN; Protocol PRN Reason: Nausea And Vomiting Ondansetron HCl (Zofran) 4 mg IV Q4-6HP PRN; Protocol PRN Reason: Nausea And Vomiting Polyethylene Glycol (Miralax) 17 gm PO DAILYP PRN PRN Reason: Constipation Potassium Chloride (Klor-Con) 40 meq PO DAILYP PRN PRN Reason: K+ < 3.5 Potassium/Phosphorus/Sodium (Neutra Phos) 2 packet PO DAILY PRN PRN Reason: PHOS <2.5 Promethazine HCl/Codeine (Promethazine-Codeine Syrup) 5 ml PO Q6HP PRN PRN Reason: Cough Pseudoephedrine HCl (Sudafed) 30 mg PO DAILYP PRN PRN Reason: ALLERGY SYMPTOMS Senna/Docusate Sodium (Senna Plus Tablet) 1 tab PO HS [facility] Last Admin: 07/19/20 21:27 Dose: Not Given Documented by: Sodium Chloride (Saline Flush) 10 ml IV Q8 [facility] Last Admin: 07/20/20 05:56 Dose: 10 ml Documented by: Tamsulosin HCl (Flomax) 0.4 mg PO QDAY [facility] Last Admin: 07/20/20 09:01 Dose: Not Given Documented by: Tiotropium [place] (Spiriva) 18 mcg INH DAILY [facility] Last Admin: 07/20/20 09:01 Dose: Not Given Documented by: Zinc Sulfate (Zinc) 50 mg PO DAILY [facility] Last Admin: 07/20/20 09:01 Dose: Not Given Documented by: A/P Narrative A/P Narrative: *COVID-19 PNA: Widespread multifocal infiltrates. Continue noninvasive ventilation. On day 8 remdesivir. Dramatic clinical deterioration in the past 24 hours now on 80% FiO2 *Acute lung injury/acute hypoxic respiratory failure: 2/2 above -Profound hypoxemia with PO2/FiO2 now less than 100, worsening AA gradient on ABG. -on Bipap now up to 80% fiO2 since last evening. Await echocardiogram rule out cardiogenic etiology -Severe sepsis with white count 20,000 and fever. Pancultures/empiric antibiotic coverage -Acute change mental status secondary to combination of severe sepsis endorgan dysfunction/hypoxia spray failure. Currently on Precedex -Chest imaging interval worsening. Start diuresis. *Sepsis: improved *Acute encephalopathy: 2/2 critical care illness/acute viral syndrome -waxes/wanes, impulsive at times and worse at night *Severe weakness: 2/2 acute viral syndrome. *Transaminitis, mild: 2/2 viral illness *Morbid obesity: *CKD III: *CAD: home aspirin/statin/BB *HTN: bb *goals of care: continue current therapy and if worsens or does not improve will consider comfort care. Do not intubate or transfer to higher care facility at this time. Plan: -Worsening overall status -Panculture/antibiotic coverage -Await echocardiogram -Interval chest imaging/blood gas -Continue remdesivir/dexamethasone -Further goals of care discussion today with son and likely will transition to comfort intervention in the absence of meaningful improvement demonstrated by patient in the last 7 days of aggressive treatment. In discussion with Son (Dieudonne, who has been in discussion with older brother Parmjit), continue bipap support but do not intubate or transfer to higher care facility. The patient requested family to make decisions per nurse (07/17); additionally, the pt stated on admit no intubate/transfer. Critical care time 35 minutes Time Spent With Patient Time: Total time spent is greater than 50% in coordination of care (as documented) at patient's floor/unit and/or counseling patient: QUALITY VTE Deep Vein Thrombosis/Pulmonary Embolism Present on Admission: No
[2020-07-20] MEDS ORDERED: VANCOMYCIN PER PHARMACY IV SCH (09:20)
[2020-07-20] MEDS ORDERED: PIPERACILLIN SODIUM/TAZOBACTAM 3.375 GM in DEXTROSE 5% IN WATER 50 ML IV SCH (09:30)
[2020-07-20] MEDS ORDERED: VANCOMYCIN 1,500 MG in 0.9 % SODIUM CHLORIDE 500 ML IV SCH (10:00)
[2020-07-20] MEDS ORDERED: LORazepam 2 MG/ML VIAL IV PRN (11:10)
[2020-07-20] MEDS: METOPROLOL SUCCINATE 50 MG TAB.XL.24H PO SCH (11:13)
[2020-07-20] MEDS: REMDESIVIR 100 MG in 0.9 % SODIUM CHLORIDE 250 ML IV SCH (11:13)
[2020-07-20] MEDS ORDERED: SCOPOLAMINE 1 PATCH PATCH TOPICAL SCH (11:15)
[2020-07-20] MEDS ORDERED: ONDANSETRON 4 MG/2 ML VIAL IV PRN (12:16)
[2020-07-20] MEDS: LORazepam 2 MG/ML VIAL IV PRN ×2 (13:23→15:52)
[2020-07-20] MEDS ORDERED: 0.9 % SODIUM CHLORIDE 10 ML SYRINGE IV SCH (14:00)
--- NOTE | 2020-07-21 08:03 | Death Note ---
Discharge Sum: Prov Provider Patient information: Note initiated : 07/21/20 at 7:59 am Service Date, if different from initiated Date: [] Patient: Guillermo Burnette 65 y/o M admitted on 07/12/20 for Shortness of breath. Cause of Acute hypoxic respiratory failure secondary to Covid pneumonia Events leading to cause of *COVID-19 PNA: Widespread multifocal infiltrates. *Acute lung injury/acute hypoxic respiratory failure: 2/2 above -Severe sepsis -Acute change mental status secondary to combination of severe sepsis endorgan dysfunction/hypoxia respiratory failure. Primary care physician: Shaq Clemente DO Consults: 07/12/20 Consult to Physician [CONS] Stat Comment: Consulting Provider: Moe Aponte Reason For Exam: Physician to Consult 07/20/20 17:21 Consult to Physician [CONS] Routine Comment: Consulting Provider: [facility] Reason For Exam: Physician to Consult Discharge Sum: Diag PCOD Cause of : COVID-19 virus infection Discharge Sum: Summary Date and Time Date of admission: 07/12/20 16:25 Date of : 07/20/20 Time of : 17:12 Additional Data Confirmation of as documented by pronouncing clinician: no pulse, no respirations, no heart sounds and pupils fixed and dilated Family: contacted Attending/PCP notified?: No Attending physician: Moe Aponte Was code activated?: No Autopsy requested?: No operations examiner notified?: No Organ bank notified?: No
[2020-07-23] MEDS ORDERED: SCOPOLAMINE 1 PATCH PATCH TOPICAL SCH (11:15)
== END 2020-07-20 20:00 | disposition expired | DRG 871 ==
LOC: ED 10:06 → ICU 16:25
PROVIDERS: ADMIT Internal Medicine; ATTEND Internal Medicine